=== PATIENT | female | born 1980 ===

== ENCOUNTER 2020-04-26 00:36 | Emergency (ER) | payer OTHER, SELFPAY ==
--- NOTE | 2020-04-26 01:12 | ED_ITS ---
HPI - Abdominal Pain General Chief Complaint: Abdominal Pain Stated Complaint: ABD PAIN Time Seen by Provider: 04/26/20 00:49 Source: patient Mode of arrival: ambulatory Limitations: no limitations History of Present Illness HPI narrative: Patient with history of kidney stone been having pain and right- side of her abdomen for last 1 month off and got worse tonight woke her up from sleep with increasing pain and nausea patient denies any urinary symptoms as such no hematuria patient feels similar pain in the past when she had kidney stone. No fever no diarrhea no abdominal distension bowel movements are normal Onset (ago): week(s) (4) Pain Consistency: intermittent Severity: moderate Related Data Allergies Allergy/AdvReac Type Severity Reaction Status Date / Time No Known Allergies Allergy Verified 04/26/20 01:21 Review of Systems Review of Systems REVIEW OF SYSTEMS: Pertinent positives and negatives are stated above in the history. GEN: no fevers, chills, fatigue HEENT: no nasal congestion, sore throat, ear pain NEURO: no headache, dizziness, focal weakness PULM: no cough, shortness of breath CV: no chest pain, palpitations, LE edema ABD: no vomiting, diarrhea : no dysuria, urgency, frequency SKIN: no rash ROS otherwise negative x 10 Physical Exam Vital Signs: Vital Signs: Last Vital Signs Temp 98.3 F 04/26/20 01:16 Pulse 88 04/26/20 01:16 Resp 16 04/26/20 01:16 BP 118/78 04/26/20 01:16 Pulse Ox 98 04/26/20 01:16 Body Mass Index 36.6 Appearance: Alert. Oriented X3. No acute distress. Eyes: Pupils equal, round and reactive to light. ENT: Pharynx normal. Neck: Normal inspection. Neck supple. CVS: Normal heart rate and rhythm. Pulses normal. Respiratory: No respiratory distress. Breath sounds normal. Abdomen: Soft and slight tender right mid quadrant right CVA tender, bowel sounds are present no rebound tenderness or guarding no mass palpable no hernia palpable Skin: Skin warm and dry. Normal skin color. Normal skin turgor. Extremities: No lower extremity edema. Good range of movement Neuro: Oriented X 3. No motor deficit. No sensory deficit. Course Course Course Narrative: Patient with right-sided pain with history of kidney stone came here for pain for a month got worse last night likely kidney stone will do CT scan of the abdomen to rule out any obstructive uropathy. Patient signed out to pending wortk up and disposition MDM - Abdominal Pain Lab Data Result diagrams: 04/26/20 01:58 04/26/20 01:58 Labs: Lab Results 04/26/20 04/26/20 Range/Units 01:58 01:58 WBC 9.2 (4.8-10.8) X10*3/uL RBC 4.25 (4.20-5.50) X10*6/uL Hgb 12.3 (12.0-16.0) g/dl Hct 37.4 (37-47) % MCV 88.0 (80-98) fL MCH 28.9 (27.0-33.0) pg MCHC 32.9 (31.0-35.0) g/dl RDW 13.2 (11.0-16.0) % Plt Count 314 (160-400) X10*3/uL MPV 10.7 (9.4-12.3) fL Immature Gran % (Auto) 0.1 (0.0-0.4) % Neut % (Auto) 48.0 (45-73) % Lymph % (Auto) 43.0 H (20-40) % Green % (Auto) 5.7 (2-11) % Eos % (Auto) 2.9 (0-4) % Baso % (Auto) 0.3 (0-2) % Lymph # (Auto) 4.0 (1.2-4.9) X10*3/uL Green # (Auto) 0.5 (0.1-1.2) X10*3/uL Eos # (Auto) 0.3 (0.0-0.4) X10*3/uL Baso # (Auto) 0.0 (0.0-0.2) X10*3/uL Abs Immat Gran (auto) 0.01 (0.00-0.03) X10*3/uL Absolute Neuts (auto) 4.4 (2.0-8.3) X10*3/uL Absolute Nucleated RBC 0.000 (0.0-0.012) X10*3/uL Nucleated RBC % (auto) 0.0 (0.0-0.2) /100WBC Urine Color YELLOW Urine Appearance CLOUDY Urine pH 6.5 (5.0-8.0) Ur Specific [place] 1.025 (1.005-1.025) Urine Protein NEG (NEG-TRACE) MG/DL Urine Glucose (UA) NEG (NEG) MG/DL Urine Ketones NEG (NEG) MG/DL Urine Blood 1+ H (NEG) Urine Nitrite POS H (NEG) Ur Leukocyte Esterase 3+ H (NEG) Urine Test NEGATIVE (NEGATIVE) [facility] Past Medical History Medical History Kidney calculus Surgical History Hx of eye surgery Hx of hernia repair Social History Social History Advance Directives: No
[2020-04-26 01:16] VITALS: BP 118/78; PULSE 88; RESP 16; TEMP 36.8; O2SAT 98; BMI 36.6
--- NOTE | 2020-04-26 01:22 | CT_ITS ---
EXAMINATION: CT ABDOMEN AND PELVIS WITHOUT CONTRAST CLINICAL INFORMATION: Right-sided pain. History of kidney stones. COMPARISON: 01/03/2019 TECHNIQUE: Multidetector volumetric imaging was performed from the superior aspect of the liver through the pubic symphysis. Sagittal and coronal reformatted images were obtained on the technologist's workstation. This CT examination was performed using dose optimization techniques as appropriate, variously including the following: *Automated exposure control *Adjustment of mA and/or kV according to patient size (this includes techniques or standardized protocols for targeted exams where dose is matched to indication/reason for exam; i.e. extremities or head) *Use of iterative reconstruction technique DLP: 732 mGy-cm FINDINGS: LUNG BASES: The visualized lung bases are unremarkable. LIVER, GALLBLADDER, AND BILIARY TREE: The liver is normal in size, and shape. Minimal diffuse hepatic steatosis. No focal hepatic lesion or biliary ductal dilatation is present. Gallbladder unremarkable. PANCREAS: Unremarkable. SPLEEN: Unremarkable. ADRENAL GLANDS: No significant change in size of the 3.4 cm left adrenal nodule measuring 11 Hounsfield units. Stable 1.3 cm lipid rich adenoma within the left adrenal and the new. Right adrenal gland is normal. KIDNEYS AND URETERS: There is a 1.8 x 1.2 cpm stone within the right renal pelvis, partially obstructing the right ureteropelvic junction associated with mild hydronephrosis. This stone measures approximately 1100 Hounsfield units and is located 11 cm from the posterior axillary line. There is also a 5 x 4 x 1 mm calculus within the dependent lower pole calyx on the right. There is a 4 mm calcification within the lower pole of the right kidney, and a few additional punctate calculi scattered throughout the left kidney. Ureters are normal in course and caliber. BLADDER: Unremarkable. GASTROINTESTINAL TRACT: Scattered left colonic diverticula. No evidence of diverticulitis. Stomach and small bowel unremarkable. Normal appendix. ABDOMINAL WALL: Prior mesh ventral herniorrhaphy. LYMPH NODES: Normal. VASCULAR: Unremarkable. PELVIC VISCERA: Uterus and ovaries unremarkable. Prior bilateral tubal ligation. OSSEOUS STRUCTURES: Significant loss of disc space height at L5-S1 with associated endplate osteophytes and facet arthropathy. CT/CT abdomen pelvis wo con IMPRESSION: * Interval increase in size of the dominant right renal calculus which has migrated into the right renal pelvis resulting in at least partial obstruction at the ureteropelvic junction associated with mild RIGHT hydronephrosis. * Additional bilateral nonobstructive intrarenal calculi as described. * Scattered left colonic diverticula without evidence of diverticulitis. * Stable indeterminate 3.4 cm nodule within the left adrenal gland measuring 11 Hounsfield units. Consider MRI or CT adrenal mass protocol in one year to document stability/definitively characterize. 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 Current guidelines from the [place] [employer] and the [place] [employer] recommend an initial biochemical evaluation of all adrenal incidentalomas to exclude pheochromocytoma, subclinical Erin/s syndrome and hyperaldosteronism.
[2020-04-26 02:03] LABS: Basophils Percent Auto 0.3 % (0-2); Eosinophils Absolute Auto 0.3 X10*3/uL (0.0-0.4); Eosinophils Percent Auto 2.9 % (0-4); Hematocrit 37.4 % (37-47); Hemoglobin 12.3 g/dl (12.0-16.0); Imm Gran Abs Auto 0.01 X10*3/uL (0.00-0.03); Imm Gran Pct Auto 0.1 % (0.0-0.4); MANUAL DIFF FLAG NO; Mean Corpuscular HGB Conc 32.9 g/dl (31.0-35.0); Mean Corpuscular Hemoglobin 28.9 pg (27.0-33.0); Mean Platelet Volume 10.7 fL (9.4-12.3); Monocytes Absolute Auto 0.5 X10*3/uL (0.1-1.2); Monocytes Percent Auto 5.7 % (2-11); Neutrophils Absolute Auto 4.4 X10*3/uL (2.0-8.3); Platelet Count 314 X10*3/uL (160-400); Red Blood Count 4.25 X10*6/uL (4.20-5.50); Red Cell Distribution Width 13.2 % (11.0-16.0); White Blood Count 9.2 X10*3/uL (4.8-10.8)
[2020-04-26 02:05] LABS: Glucose Urine UA NEG (NEG); Leukocyte Esterase Urine 3+ (NEG); Nitrite Urine POS (NEG); PH 6.5 (5.0-8.0); Specific Gravity - Urine 1.025 (1.005-1.025); Urine Blood 1+ (NEG); Urine Ketones NEG (NEG); Urine Protein NEG (NEG-TRACE)
[2020-04-26 02:07] LABS: Appearance Urine CLOUDY; Color Urine YELLOW; UPreg QC Valid YES; Urine Pregnancy NEGATIVE (NEGATIVE)
[2020-04-26] MEDS: 0.9 % Sodium Chloride 1,000 ML 999 ML IVCONT (02:07)
[2020-04-26] MEDS: Morphine Sulfate 4 MG/ML CARTRIDGE IVPUSH (02:07)
[2020-04-26] MEDS: ondansetron HCL 4 MG/2 ML VIAL IVPUSH (02:08)
[2020-04-26 02:12] LABS: Bacteria Urine 4+ /LPF; Mucus Urine 1+ /LPF; Squamous Epithelial Cell Urine 1+ /LPF; WBC Urine 30-49 /HPF (0-4)
[2020-04-26 02:31] LABS: Alanine Aminotransferase 9 U/L (0-31); Albumin Level 3.8 g/dL (3.5-5.0); Alkaline Phosphatase 71 U/L (39-117); Anion Gap 13 (12-20); Aspartate Amino Transferase 12 U/L (5-31); Bilirubin Total 0.3 mg/dL (0.0-1.0); Blood Urea Nitrogen 14 mg/dL (9-16); Calcium 8.7 mg/dL (8.4-10.2); Carbon Dioxide 24 mmol/L (22-29); Chloride 105 mmol/L (96-108); Creatinine Clr Calc Pharmacy 111.1; Estimated Glomerular Filt Rate > 60; Glucose Random 92 mg/dL (60-115); Lipase 39 U/L (8-78); Potassium 4.2 mmol/l (3.3-5.1); Sodium 138 mmol/L (135-145); Total Protein 6.5 g/dL (6.5-8.0)
--- NOTE | 2020-04-26 02:58 | PC.NURSE ---
confirmed with md Orozco that she does not want lactic or blood cultures.
[2020-04-26 03:05] VITALS: BP 100/63; PULSE 80; RESP 16; O2SAT 96
[2020-04-26] MEDS: cefTRIAXone sodium 1 GM in 0.9 % Sodium Chloride 50 ML IV (03:10)
[2020-04-26 04:00] VITALS: BP 108/64; PULSE 82; RESP 16; O2SAT 97
== END 2020-04-26 04:26 | disposition home or self-care (01) ==
PROVIDERS: Student in an Organized Health Care Education/Training Program; Emergency Provider Internal Medicine; PCP Internal Medicine
DX: N20.0 Calculus of kidney (principal); Z87.442 Personal history of urinary calculi
CPT/HCPCS: 36415; 74176; 80053; 81001; 81025; 83690; 85025; 87086; 87088; 87186; 96361; 96365; 96375; 99283; 99284; J0696; J2270; J2405

== ENCOUNTER → 2020-04-27 16:03 | Outpatient (BNVA) | payer OTHER, SELFPAY | PROVIDERS: Visit Provider Urology | DX: Z76.89 Persons encountering health services in other specified circumstances (principal) ==

== ENCOUNTER 2020-08-17 16:13 | Outpatient (REF) | payer OTHER, SELFPAY ==
--- NOTE | ~2020-08-17 | XR_ITS ---
EXAMINATION: XR HAND, LEFT CLINICAL INFORMATION: Pain. Assess for osteoarthritis. COMPARISON: None TECHNIQUE: Left hand is imaged in 3 views. FINDINGS: There is no fracture, dislocation, destructive process. There is normal bony mineralization. No periarticular osteopenia. Ulnar variance is within neutral. The carpus shows no joint narrowing or erosive change or chondrocalcinosis. The pronator quadratus fat pad appears normal. The MCP and interphalangeal joints show no narrowing or erosive change. XR/XR hand LT min 3V IMPRESSION: Normal left hand.
--- NOTE | ~2020-08-17 | XR_ITS ---
EXAMINATION: XR KNEE, LEFT CLINICAL INFORMATION: Pain, assess for osteoarthritis. COMPARISON: None TECHNIQUE: Four views of the left knee. FINDINGS: There is no fracture or dislocation or destructive process. There is borderline narrowing medial knee joint compartment but no associated subchondral sclerosis or erosive change or chondrocalcinosis. Suspect small suprapatellar effusion. Hoffa's fat pad appears normal. The bony mineralization is normal. Axial view patella shows no lateralization or tilting. XR/XR knee LT 4V IMPRESSION: Borderline medial knee joint compartment narrowing. Suspect small suprapatellar effusion.
[2020-08-17 17:09] LABS: Alanine Aminotransferase 17 U/L (0-31); Albumin Level 4.2 g/dL (3.5-5.0); Alkaline Phosphatase 79 U/L (39-117); Anion Gap 12 (12-20); Aspartate Amino Transferase 17 U/L (5-31); Bilirubin Total 0.8 mg/dL (0.0-1.0); Blood Urea Nitrogen 12 mg/dL (9-16); C Reactive Protein 0.84 mg/dL (< or = 0.50); Calcium 9.2 mg/dL (8.4-10.2); Carbon Dioxide 28 mmol/L (22-29); Chloride 106 mmol/L (96-108); Estimated Glomerular Filt Rate > 60; Glucose Random 91 mg/dL (60-115); Potassium 3.9 mmol/L (3.3-5.1); Rheumatoid Factor < 15.0 IU/mL (<15.0); Sodium 142 mmol/L (135-145); Total Protein 6.7 g/dL (6.5-8.0)
[2020-08-18 13:21] LABS: Anti Nuclear Antibody Screen NEGATIVE (NEGATIVE)
== END 2020-08-17 16:14 | disposition home or self-care (01) ==
LOC: HO.LAB 16:13
PROVIDERS: PCP Internal Medicine; Visit Provider Internal Medicine
DX: M79.642 Pain in left hand (principal); M25.562 Pain in left knee
CPT/HCPCS: 36415; 73130; 73564; 80053; 84550; 86038; 86039; 86140; 86431

== ENCOUNTER → 2020-08-27 10:02 | Outpatient (BNVA) | payer OTHER, SELFPAY | PROVIDERS: Visit Provider Physician Assistant | DX: M22.2X9 Patellofemoral disorders, unspecified knee (principal) | CPT/HCPCS: 99202 ==

== ENCOUNTER → 2020-08-31 11:19 | Outpatient (BNVA) | payer OTHER, SELFPAY | PROVIDERS: Visit Provider Physician Assistant | DX: M22.2X9 Patellofemoral disorders, unspecified knee (principal) | CPT/HCPCS: 20605; 20610; 99212; J1040 ==

== ENCOUNTER → 2020-09-08 10:18 | Outpatient (BNVA) | payer OTHER, SELFPAY | PROVIDERS: Visit Provider Orthopaedic Surgery | DX: M79.644 Pain in right finger(s) (principal); M22.2X9 Patellofemoral disorders, unspecified knee | CPT/HCPCS: 99202 ==

== ENCOUNTER 2020-10-12 08:00 | Outpatient (RCR) | payer OTHER, SELFPAY ==
--- NOTE | 2020-09-23 09:22 | MHC.PT.EP ---
[facility] [place] [facility] [place] [facility] [place] [facility] [address] Denisha Nunes [address] [phone] F: [phone] F: [phone] F: [phone] F: [phone] Physical Therapy Plan of Care Date of Evaluation: Date of Surgery: Diagnosis: PF of left knee Assessment: The patient arrived with medial and supra patellar knee pain. Her x-ray decreased joint space medial compartment and effusion in the supra patellar region. The patient had fairly normal ROM in her spine, ROM in her left knee, decreased strength in left knee. She has increased supination in standing with a high arch. She will benefit from assessment of gait, foot mechanics to help manage medial knee pain. Iontophoresis used today for local effusion in suprapatellar bursa. Quad strengthening will be important to improve joint stabilization. Frequency and Duration: The patient will be seen 2x/week x 4 weeks Short Term Goals: 1. Pt to be able to perform functional tasks with 50% less pain. Fpc Goals: weeks - the patient will have no limiting pain in her knees during gait with community ambulation to show improved activity tolerance. 4 weeks - pt will have more quad control with TKE demonstrated by no medial collapse during a curb height step. 4 weeks -patient to be able to return to all functional movements and ADL's without limiting knee pain to show return to PLOF. Treatment Plan: Modalities to reduce pain, spasms and effusion. Manual therapy to restore motion and function. Therapeutic exercise to improve strength and flexibility. Neuromuscular re-education for posture and balance. Therapeutic activities to return to functional activities of daily living. Electronically signed by: Rosario Montes PT DPT Please sign and return to therapist. Thank you for your referral.
== END 2020-10-26 08:00 | disposition home or self-care (01) ==
LOC: HO.PT 08:00
PROVIDERS: PCP Internal Medicine; Visit Provider Physician Assistant
DX: M22.2X9 Patellofemoral disorders, unspecified knee (principal)
CPT/HCPCS: 97033; 97110; 97112; 97140; 97162; 97530

== ENCOUNTER 2021-02-23 10:36 | Outpatient (REF) | payer OTHER, SELFPAY ==
[2021-02-23 13:33] LABS: MANUAL DIFF FLAG NO
[2021-02-23 13:41] LABS: Basophils Percent Auto 0.6 % (0-2); Eosinophils Absolute Auto 0.2 X10*3/uL (0.0-0.4); Eosinophils Percent Auto 3.5 % (0-4); Hematocrit 40.3 % (37-47); Hemoglobin 13.1 g/dl (12.0-16.0); Imm Gran Abs Auto 0.02 X10*3/uL (0.00-0.03); Imm Gran Pct Auto 0.3 % (0.0-0.4); Lymphocytes Absolute Auto 2.7 X10*3/uL (1.2-4.9); Lymphocytes Percent Auto 40.3 % (20-40); Mean Corpuscular HGB Conc 32.5 g/dl (31.0-35.0); Mean Corpuscular Hemoglobin 28.9 pg (27.0-33.0); Mean Corpuscular Volume 88.8 fL (80-98); Mean Platelet Volume 11.3 fL (9.4-12.3); Monocytes Absolute Auto 0.4 X10*3/uL (0.1-1.2); Monocytes Percent Auto 5.9 % (2-11); Neutrophils Absolute Auto 3.3 X10*3/uL (2.0-8.3); Neutrophils Percent Auto 49.4 % (45-73); Platelet Count 332 X10*3/uL (160-400); Red Blood Count 4.54 X10*6/uL (4.20-5.50); Red Cell Distribution Width 12.7 % (11.0-16.0); White Blood Count 6.6 X10*3/uL (4.8-10.8)
[2021-02-23 14:07] LABS: Appearance Urine CLEAR; Color Urine YELLOW; Glucose Urine UA NEG (NEG); Leukocyte Esterase Urine NEG (NEG); Nitrite Urine NEG (NEG); Specific Gravity - Urine 1.025 (1.005-1.025); Urine Blood NEG (NEG); Urine Ketones NEG (NEG); Urine Protein NEG (NEG-TRACE)
[2021-02-23 14:22] LABS: Alanine Aminotransferase 13 U/L (0-31); Albumin Level 4.1 g/dL (3.5-5.0); Alkaline Phosphatase 76 U/L (39-117); Anion Gap 13 (12-20); Aspartate Amino Transferase 13 U/L (5-31); Bilirubin Total 0.4 mg/dL (0.0-1.0); Blood Urea Nitrogen 13 mg/dL (9-16); Calcium 9.6 mg/dL (8.4-10.2); Carbon Dioxide 26 mmol/L (22-29); Chloride 104 mmol/L (96-108); Estimated Glomerular Filt Rate > 60; Glucose Fasting 95 mg/dL (60-99); Potassium 4.4 mmol/L (3.3-5.1); Sodium 139 mmol/L (135-145); Total Protein 6.7 g/dL (6.5-8.0)
[2021-02-26 13:46] LABS: TS Negative Control Passed; TS Panel A 0; TS Panel B 0; TS Positive Control Passed; TSpotTB Negative (SeeBelow)
== END 2021-02-23 10:37 | disposition home or self-care (01) ==
LOC: HO.10HDL 10:36
PROVIDERS: Visit Provider Internal Medicine
DX: Z02.1 Encounter for pre-employment examination (principal); Z11.1 Encounter for screening for respiratory tuberculosis; R10.9 Unspecified abdominal pain; N20.0 Calculus of kidney
CPT/HCPCS: 36415; 80053; 81003; 85025; 86481; 87086

== ENCOUNTER 2021-03-01 13:06 | Outpatient (REF) | payer OTHER, SELFPAY ==
[2021-03-02 13:55] LABS: CT PCR NOT DETECTED (Not Detect.); NG PCR NOT DETECTED (Not Detect.)
[2021-03-03 09:04] LABS: BV Int Neg Control Negative (Negative); BV Int Pos Control Positive (Positive)
[2021-03-05 19:02] LABS: HPV mRNA E6/E7 rflx Not Detected (Not Detected)
== END 2021-03-01 13:07 | disposition home or self-care (01) ==
LOC: HO.LAB 13:06
PROVIDERS: Visit Provider Advanced Practice Midwife
DX: Z01.419 Encounter for gynecological examination (general) (routine) without abnormal findings (principal); Z11.3 Encounter for screening for infections with a predominantly sexual mode of transmission; Z11.51 Encounter for screening for human papillomavirus (HPV); Z20.2 Contact with and (suspected) exposure to infections with a predominantly sexual mode of transmission
CPT/HCPCS: 87480; 87491; 87510; 87591; 87624; 87660; 88142

== ENCOUNTER 2021-03-15 13:52 | Outpatient (REF) | payer OTHER, SELFPAY ==
--- NOTE | ~2021-03-15 | US_ITS ---
EXAMINATION: US RETROPERITONEAL LIMITED (RENAL ONLY) CLINICAL INFORMATION: Calculus of kidney. COMPARISON: CT abdomen and pelvis 04/26/2020. Renal ultrasound 06/21/2019. TECHNIQUE: Real-time imaging of the kidneys. FINDINGS: RIGHT KIDNEY: 10.5 x 6.0 x 5.9 cm (SAG x AP x TRV). The kidney is normal in size, contour, and echogenicity. Renal cortical thickness is normal. No focal parenchymal lesion. There is moderate hydronephrosis noted. Multiple calculi are seen in the collecting system. There is a midpole 0.9 cm calculus. There is also a 0.5 cm midpole calculus. Of note, the ureteral jets are seen in the bladder. LEFT KIDNEY: 10.5 x 5.3 x 5.7 cm (SAG x AP x TRV). The kidney is normal in size, contour, and echogenicity. Renal cortical thickness is normal. No calculi or focal parenchymal lesions. No hydronephrosis. US/US renal BI IMPRESSION: Moderate right hydronephrosis. Nonobstructing right-sided renal calculi are seen at the midpole. Of note, the ureteral jets are visualized in the bladder.
== END 2021-03-15 13:53 | disposition home or self-care (01) ==
LOC: HO.US 13:52
PROVIDERS: PCP Internal Medicine; Visit Provider Urology
DX: N20.0 Calculus of kidney (principal)
CPT/HCPCS: 76775

== ENCOUNTER → 2021-03-21 13:58 | Outpatient (BNVA) | payer OTHER, SELFPAY | DX: N20.0 Calculus of kidney (principal) | CPT/HCPCS: 99212 ==

== ENCOUNTER 2021-03-30 08:11 | Day surgery (SDC) | payer OTHER, SELFPAY ==
--- NOTE | 2021-03-29 12:23 | HO.ANESPROP2 ---
Documented by User: Christine Mccord NP 03/29/21 12:24 HPI - Anesthesia Eval Consult details Narrative: 40yo F for Lithotripsy ESW No prev ESWL on record PMFSH Active Problems Active Problems: All Active Problems (Updated 03/16/21 @ 16:17 by Jen Jacome CNM) Cervical cancer screening (Acute) Well woman exam with routine gynecological exam (Acute) Kidney calculus (Acute) Pain of right thumb (Acute) Patella-femoral syndrome (Acute) Past Medical History Medical History Kidney calculus Surgical History Surgical History History of tubal ligation Hx of eye surgery Hx of hernia repair Social History Social History Alcohol intake: former Patient Tobacco Use Status: Never used Tobacco Use of substances other than those prescribed or required for medical reasons: No Have you been hit, kicked, punched, or otherwise hurt by someone within the past year? If so, by whom?: No Are you DNR?: No Advance Directives: No Advance Directives Information Provided: Yes Recently lost weight without trying: No Nutrition Risks: No Nutritional Risk Patient : No Current occupational status: employed Current occupation: Charge Nurse Meds Allergies Allergy/AdvReac Type Severity Reaction Status Date / Time No Known Allergies Allergy Verified 03/21/21 14:15 Home Medications Medication Instructions Recorded Confirmed Last Taken Type glucosamine-chondroitin 250 mg-200 2 tab PO TID 08/27/20 03/01/21 Unknown History mg tablet (Osteo Bi-Flex) sulfamethoxazole 800 1 tab PO Q12H 03/01/21 03/01/21 Unknown History mg-trimethoprim 160 mg tablet (Bactrim DS) ibuprofen 800 mg tablet 800 mg PO TID PRN 03/21/21 Unknown History Exam Exam Date and Time: March 29, 2021 1223 Pertinent Lab Results Pertinent Lab Results: Laboratory Tests 02/23/21 02/23/21 10:40 10:40 WBC 6.6 Hgb 13.1 Hct 40.3 Plt Count 332 Sodium 139 Potassium 4.4 Chloride 104 Carbon Dioxide 26 BUN 13 Creatinine 0.70 Assessment and Plan Assessment Anesthesia Assessment: Chart Reviewed Documented by User: Gaye Nicole MD 03/30/21 10:13 [facility] Past Medical History Medical History Kidney calculus Family History Family history of problems with anesthesia: No Surgical History Surgical History History of tubal ligation Hx of eye surgery Hx of hernia repair History of Problems with Anesthesia: No Social History Social History Alcohol intake: former Patient Tobacco Use Status: Never used Tobacco Use of substances other than those prescribed or required for medical reasons: No Have you been hit, kicked, punched, or otherwise hurt by someone within the past year? If so, by whom?: No Are you DNR?: No Advance Directives: No Advance Directives Information Provided: Yes Recently lost weight without trying: No Nutrition Risks: No Nutritional Risk Patient : No Current occupational status: employed Current occupation: Charge Nurse Meds Allergies Allergy/AdvReac Type Severity Reaction Status Date / Time No Known Allergies Allergy Verified 03/21/21 14:15 Home Medications Medication Instructions Recorded Confirmed Last Taken Type glucosamine-chondroitin 250 mg-200 2 tab PO TID 08/27/20 03/01/21 Unknown History mg tablet (Osteo Bi-Flex) sulfamethoxazole 800 1 tab PO Q12H 03/01/21 03/01/21 Unknown History mg-trimethoprim 160 mg tablet (Bactrim DS) ibuprofen 800 mg tablet 800 mg PO TID PRN 03/21/21 Unknown History Exam Airway Mallampati Class: II TM Dist: >3cm Neck ROM: Full Heart: rrr Lungs: cta Assessment and Plan Assessment Anesthesia Assessment: Anesthesia Plan Discussed and Chart Reviewed Final Anesthetic Review Family History of Problems with Anesthesia: No History of Problems with Anesthesia: No NPO: Yes ASA Class: II Final Preanesthetic Review: No Changes in Pt Med Stat, Meds/Allgs Chart Reviewed and Consent Obtained/Reviewed Patient Risk: Intermediate Procedure Risk: Intermediate Anesthetic Plan Anesthetic Plan: MAC: Disposition: Standard PACU
--- NOTE | ~2021-03-30 | XR_ITS ---
EXAMINATION: XR ABDOMEN KUB CLINICAL INDICATION: Nephrolithiasis. COMPARISON: Renal ultrasound of 03/15/21. Prior CT scan of 04/26/20. TECHNIQUE: AP view of the abdomen. FINDINGS: The calculus seen previously in the right renal pelvis is again demonstrated measuring 2.0 x 1.2 cm. A small linear calcification overlying the lower pole the left kidney could represent calculus measuring 0.4 x 0.1 cm. Calcified phleboliths are noted in the pelvis. Mesh fasteners from previous abdominal wall hernia repair are noted. The bowel gas pattern is unremarkable. XR/XR KUB IMPRESSION: Persistent calculus at the right renal pelvis. Questionable small calculus lower pole left kidney.
[2021-03-30 08:46] VITALS: BP 107/68; PULSE 87; RESP 18; TEMP 36.2; O2SAT 97; BMI 38.6
[2021-03-30] MEDS: levoFLOXacin 500 MG TABLET PO (09:00)
[2021-03-30] MEDS: Lactated Ringers 1,000 ML 100 ML IVCONT (09:00)
[2021-03-30] MEDS: Acetaminophen 325 MG TABLET 650 MG PO (09:01)
--- NOTE | 2021-03-30 10:16 | MHC.SHP ---
Pre-Procedural Eval Section A Date of Service: 03/30/21 Section B Chief Complaint: calculus of kidney Details of Present Illness: right midpole 9mm and 5mm stones Relevant Social History: None Present Medications: see Short Stay Collaborative assessment Medical History: No relevant PMH History of Previous Operations: No relevant previous surgery Allergies: Allergies Allergy/AdvReac Type Severity Reaction Status Date / Time No Known Allergies Allergy Verified 03/21/21 14:15 Review of Systems Sugical H&P ROS: Negative: Constitution, Cardiovascular, Respiratory, Neurological, Psychiatric, Hem-Onc, Allergic/Immunologic, Gastrointestinal, Genitourinary, Musculoskeletal, Integumentary, Endocrine and Eyes/Ears/Nose/Throat Exam Surgical H&P Exam: Normal: HEENT, Normal: Heart, Normal: Lungs, Normal: Extremities, Normal: Abdomen, Normal: Skin and Normal: Neurological Plan Diagnosis/Plan: Unchanged (right mid pole ESWL) I have reviewed the history and physical and performed a pertinent physical examination on my patient. No changes have occurred unless specified.
--- NOTE | 2021-03-30 11:06 | W.PM.OPN ---
Operative Note Operative Note Date of Service: 03/30/21 Narrative: PreOperative Diagnosis: Right Renal stones Post Operative Diagnosis: Right Renal stones Procedure: Right ESWL Surgeon: Dr Hal Cordova Anesthesia: mac/sedation Indications for procedure: The patient understands ESWL may be a staged procedure and subsequent intervention may be required based on imaging after ESWL. They also understand there is a risk of bleeding to the kidney, infection, damage to adjacent organs, and stone migration following the procedure. - 9mm mm right renal stone Procedure: After informed consent was verified the patient was brought to the operating room and placed in a supine position. Anesthesia was performed per protocol. Safety pause time-out was performed. Imaging was displayed in the room and laterality confirmed. ESWL was performed. The 1st 500 shocks were performed at 60 hertz. These were performed with increasing power. Once maximum power was reached the rate was increased to 180 hertz. A total of 2500 shocks were given. Targetted imaging with ultrasound/fluoroscopy showed stone smudging suggestive of disintegration. The patient tolerated the procedure well and was transferred to the recovery area upon completion. Post procedure imaging will be organized. There was no evidence for flank discoloration.
[2021-03-30 11:26] VITALS: BP 102/59; PULSE 83; RESP 12; TEMP 36.1; O2SAT 98
[2021-03-30 11:41] VITALS: BP 117/77; PULSE 66; RESP 17; TEMP 36.1; O2SAT 96
== END 2021-03-30 12:13 | disposition home or self-care (01) ==
PROVIDERS: PCP Internal Medicine; Visit Provider Urology
PROC: (CPT 50590; principal; 2021-03-30 10:00)
DX: N20.0 Calculus of kidney (principal); Z87.442 Personal history of urinary calculi; Z98.51 Tubal ligation status
CPT/HCPCS: 50590; 74018; J1100; J2250; J2405; J3010

== ENCOUNTER 2021-04-26 11:28 | Outpatient (REF) | payer OTHER, SELFPAY ==
--- NOTE | ~2021-04-26 | US_ITS ---
EXAMINATION: US RETROPERITONEAL LIMITED (RENAL ONLY) CLINICAL INFORMATION: Calculus of kidney. COMPARISON: KUB dated 03/30/2021. Bilateral renal ultrasound dated 03/15/2021. CT abdomen and pelvis without contrast dated 04/26/2020. Renals only ultrasound dated 06/21/2019. TECHNIQUE: Real-time imaging of the kidneys. FINDINGS: RIGHT KIDNEY: 12.4 x 5.0 x 7.1 cm (SAG x AP x TRV). The kidney is normal in size, contour, and echogenicity. Renal cortical thickness is normal. No focal parenchymal lesions. There is an echogenic cluster of stones in the right proximal ureter measuring 2.6 x 1.0 x 1.1 cm with mild hydronephrosis. In addition, there are several echogenic stones in lower pole measuring 0.9 x 0.4 x 0.6 cm and 0.5 x 0.4 x 0.8 cm and 1.2 x 0.7 x 0.6 cm. LEFT KIDNEY: 11.9 x 5.6 x 6.0 cm (SAG x AP x TRV). The kidney is normal in size, contour, and echogenicity. Renal cortical thickness is normal. No focal parenchymal lesions or hydronephrosis. There is an echogenic stone in the lower pole measuring 0.4 x 0.3 x 0.4 cm. US/US renal BI IMPRESSION: Cluster of obstructive echogenic stones in the left proximal ureter with mild hydronephrosis. Small echogenic stone lower pole measuring 0.4 cm.
== END 2021-04-26 11:29 | disposition home or self-care (01) ==
LOC: HO.HMGCX 11:28
PROVIDERS: Visit Provider Urology
DX: N20.0 Calculus of kidney (principal)
CPT/HCPCS: 76775

== ENCOUNTER → 2021-04-27 10:53 | Outpatient (BNVA) | payer OTHER, SELFPAY | PROVIDERS: PCP Internal Medicine ==

== ENCOUNTER 2021-05-04 15:01 | Outpatient (REF) | payer OTHER, SELFPAY ==
[2021-05-10 15:21] LABS: Stone Source STONE
== END 2021-05-04 15:02 | disposition home or self-care (01) ==
LOC: HO.LNP 15:01
PROVIDERS: PCP Internal Medicine; Visit Provider Urology
DX: N20.0 Calculus of kidney (principal)
CPT/HCPCS: 82365; 88300; 99212

== ENCOUNTER 2021-06-06 10:08 | Day surgery (SDC) | payer OTHER, SELFPAY ==
[2021-05-31 10:04] VITALS: BMI 38.6
--- NOTE | 2021-06-03 13:21 | HO.ANESPROP2 ---
Documented by User: Christine Mccord NP 06/03/21 13:23 HPI - Anesthesia Eval Consult details Narrative: 41yo F for Right Cystoscopy, Ureteroroscopy, Retro, Laser possible stent s/p ESWL 03/2021 with MAC PMFSH Active Problems Active Problems: All Active Problems (Updated 05/31/21 @ 10:04 by Marielos Harper, MIKE) Patella-femoral syndrome (Acute) Pain of right thumb (Acute) Well woman exam with routine gynecological exam (Acute) Cervical cancer screening (Acute) Kidney calculus (Acute) Past Medical History Medical History (Updated 05/31/21 @ 10:04 by Marielos Harper RN) COVID-19 vaccine series completed Kidney calculus Family History Family history of problems with anesthesia: No Surgical History Surgical History (Updated 05/31/21 @ 09:55 by Marielos Harper RN) History of tubal ligation Hx of eye surgery Hx of hernia repair Hx of lithotripsy History of Problems with Anesthesia: No Social History Social History Alcohol intake: former Patient Tobacco Use Status: Never used Tobacco Use of substances other than those prescribed or required for medical reasons: No Have you been hit, kicked, punched, or otherwise hurt by someone within the past year? If so, by whom?: No Advance Directives: No Advance Directives Information Provided: Yes (brochure mailed) Advance Directives on File: No Recently lost weight without trying: No Eating poorly because of decreased appetite: No Nutrition Risks: No Nutritional Risk Current occupational status: employed Current occupation: Charge Nurse Meds Allergies Allergy/AdvReac Type Severity Reaction Status Date / Time No Known Allergies Allergy Verified 05/04/21 15:04 Home Medications Medication Instructions Recorded Confirmed Last Taken Type glucosamine-chondroitin 250 mg-200 2 tab PO TID 08/27/20 05/31/21 Unknown History mg tablet (Osteo Bi-Flex) ibuprofen 800 mg tablet 800 mg PO TID PRN 03/21/21 05/31/21 Unknown History Exam Exam Date and Time: June 03, 2021 1321 Height,Weight and Vital Signs: Height 5 ft 3 in Weight 98.883 kg Pertinent Lab Results Pertinent Lab Results: Laboratory Tests 02/23/21 02/23/21 10:40 10:40 WBC 6.6 Hgb 13.1 Hct 40.3 Plt Count 332 Sodium 139 Potassium 4.4 Chloride 104 Carbon Dioxide 26 BUN 13 Creatinine 0.70 Assessment and Plan Assessment Anesthesia Assessment: Chart Reviewed Final Anesthetic Review Family History of Problems with Anesthesia: No History of Problems with Anesthesia: No Documented by User: Gaye Nicole MD 06/06/21 10:50 PMFSH Past Medical History Medical History (Updated 05/31/21 @ 10:04 by Marielos Harper RN) COVID-19 vaccine series completed Kidney calculus Surgical History Surgical History (Updated 05/31/21 @ 09:55 by Marielos Harper RN) History of tubal ligation Hx of eye surgery Hx of hernia repair Hx of lithotripsy Social History Social History Alcohol intake: former Patient Tobacco Use Status: Never used Tobacco Use of substances other than those prescribed or required for medical reasons: No Have you been hit, kicked, punched, or otherwise hurt by someone within the past year? If so, by whom?: No Advance Directives: No Advance Directives Information Provided: Yes (brochure mailed) Advance Directives on File: No Recently lost weight without trying: No Eating poorly because of decreased appetite: No Nutrition Risks: No Nutritional Risk Current occupational status: employed Current occupation: Charge Nurse Meds Allergies Allergy/AdvReac Type Severity Reaction Status Date / Time No Known Allergies Allergy Verified 05/04/21 15:04 Home Medications Medication Instructions Recorded Confirmed Last Taken Type glucosamine-chondroitin 250 mg-200 2 tab PO TID 08/27/20 05/31/21 Unknown History mg tablet (Osteo Bi-Flex) ibuprofen 800 mg tablet 800 mg PO TID PRN 03/21/21 05/31/21 Unknown History Exam Airway Mallampati Class: II TM Dist: >3cm Neck ROM: Full Heart: rrr Lungs: cta Assessment and Plan Assessment Anesthesia Assessment: Anesthesia Plan Discussed and Chart Reviewed Final Anesthetic Review NPO: Yes ASA Class: II Final Preanesthetic Review: No Changes in Pt Med Stat, Meds/Allgs Chart Reviewed and Consent Obtained/Reviewed Patient Risk: Intermediate Procedure Risk: Intermediate Anesthetic Plan Anesthetic Plan: GA Disposition: Standard PACU
[2021-06-06] VITALS (15 sets, daily range): BP systolic 106–128; BP diastolic 66–81; PULSE 63–91; RESP 16–18; TEMP 36.3–36.8; O2SAT 95–99
--- NOTE | ~2021-06-06 | FL_ITS ---
EXAMINATION: XR FLUOROSCOPY WITH IMAGES CLINICAL INFORMATION: Echogenic stone lower pole left kidney. COMPARISON: Ultrasound kidneys 04/26/2021. TECHNIQUE: Fluoroscopy performed by Dr. Hal Cordova Fluoroscopy time: 85.9 seconds DAP: 37.12 mGycm2 Images: 3 FINDINGS: There are 3 digital images obtained in the OR. On the first image there is a right ureteral guidewire with proximal catheter or stent. The last image reveals a double ureteral stent with its proximal end in the right kidney pelvis and the distal end in the bladder. There is evidence of previous upper abdomen hernia repair changes. FL/FL guidance in OR IMPRESSION: Fluoroscopy was provided to Dr. Art Hong for right retrograde and laser intervention.
--- NOTE | 2021-06-06 11:47 | MHC.SHP ---
Pre-Procedural Eval Section A Date of Service: 06/06/21 The patient is an INPATIENT: No Changes since office visit: No Cold of Flu in the past 2 weeks, No New Medical Problems, No Changes in Medication and No Patient answered all questions The History & Physical has been completed within 30 days and I have reviewed it.: No Section B Chief Complaint: kidney stone Details of Present Illness: Right proximal ureteric stones Relevant Family History (Specify if Yes): No Relevant Social History: None Present Medications: None Medical History: No relevant PMH History of Previous Operations: Relevant previous surgery/procedure and date(s) Allergies: Allergies Allergy/AdvReac Type Severity Reaction Status Date / Time No Known Allergies Allergy Verified 05/04/21 15:04 Review of Systems Sugical H&P ROS: Negative: Constitution, Cardiovascular, Respiratory, Neurological, Psychiatric, Hem-Onc, Allergic/Immunologic, Gastrointestinal, Genitourinary, Musculoskeletal, Integumentary, Endocrine and Eyes/Ears/Nose/Throat Exam Surgical H&P Exam: Normal: HEENT, Normal: Heart, Normal: Lungs, Normal: Extremities, Normal: Abdomen, Normal: Skin and Normal: Neurological Plan Diagnosis/Plan: Unchanged (right felxible ureteroscopy with laser lithotripsy) I have reviewed the history and physical and performed a pertinent physical examination on my patient. No changes have occurred unless specified.
[2021-06-06] MEDS: levoFLOXacin 500 MG TABLET PO (12:05)
[2021-06-06] MEDS: Lactated Ringers 1,000 ML 50 ML IVCONT (12:06)
--- NOTE | 2021-06-06 13:19 | W.PM.OPN ---
Operative Note Operative Note Date of Service: 06/06/21 Narrative: PreOperative Diagnosis: Right proximal ureteric stones Post Operative Diagnosis: Right proximal ureteric and right renal stones Procedure: - cystoscopy, right retrograde - right dilatation of ureteric orifice under fluoroscopy - right ureteroscopy, laser lithotripsy, stone basketing - right stent placement Surgeon: Dr Hal Cordova Anesthesia: General Indications for procedure: 41-year-old female. Underwent ESWL for right stent renal stone. Has had fragmentation that got stuck in right proximal ureter and debris within right lower pole kidney. These have been our past. Recommend intervention with ureteroscopy. Procedure: After informed consent was verified patient was brought to the operating placed in supine position. Anesthesia was administered per protocol. Patient was placed in modified dorsal lithotomy position and prepped and draped in a sterile fashion. Safety pause time-out and side of surgery confirmed. Antibiotics confirmed. 22 Ghanaian cystoscope was inserted per urethra. Bladder was normal in its entirety. Both ureteric orifices were in normal position. The right ureteric orifice was cannulated and a retrograde examination was performed. Filling defects seen in the proximal right ureter. A Sensor guidewire was placed up to the level of the renal pelvis under fluoroscopy, did have some difficulty passing collection of stones in the right proximal ureter. The rigid cystoscope was removed and the inner cannula of ureteric access sheath was used under fluoroscopy to dilate the ureteric orifice. The ureteric access sheath was placed and the inner cannula with access wire removed. The digital flexible ureteral scope was placed. Stone debris was encountered in the proximal ureter. Using a 272 micron laser fiber the stones were broken into small pieces. Some of the mid back up into the kidney. We went up the kidney and was further stone debris in both the lower and mid pole the kidney. These were broken up using the laser. We switched to using a 0 tip basket in order remove fragments. We switched back with and forth between 0 to basket the laser fiber breaking up the stones into the fragments that were small enough to pass. The the kidney was washed out using the open-ended catheter. Further exploration was performed and further fragments were removed. A 6 Ghanaian by 24 cm double-J stent was placed into the renal pelvis and bladder under a combination of fluoroscopy and direct visualization. The bladder was emptied. The patient tolerated the procedure well and was extubated in the operating room, and transferred in stable condition to the recovery area. Pathology: Stones Drains: 6 Ghanaian by 24 cm double-J stent
[2021-06-06] MEDS: fentaNYL citrate/PF 100 MCG/2 ML VIAL 50 MCG IVPUSH (13:36)
[2021-06-06] MEDS: Phenazopyridine HCL 100 MG TABLET PO (13:37)
[2021-06-06] MEDS: Acetaminophen 325 MG TABLET 650 MG PO (13:37)
[2021-06-06] MEDS: oxyCODONE HCl Immed Release 5 MG TABLET PO (13:38)
[2021-06-09 04:27] LABS: Stone Source KIDNEY STONE
== END 2021-06-06 16:36 | disposition home or self-care (01) ==
PROVIDERS: PCP Internal Medicine; Visit Provider Urology
PROC: (CPT 52356; principal; 2021-06-06 11:40)
DX: N20.0 Calculus of kidney (principal); N20.1 Calculus of ureter; Z87.442 Personal history of urinary calculi; Z79.4 Long term (current) use of insulin
CPT/HCPCS: 52356; 52352; 82365; 88300; C1758; C1769; C2617; J1100; J1885; J2250; J2405; J2550; J3010; Q9967

== ENCOUNTER 2021-06-15 08:49 | Emergency (ER) | payer OTHER, SELFPAY ==
--- NOTE | ~2021-06-15 | CT_ITS ---
EXAMINATION: CT ABDOMEN AND PELVIS WITH CONTRAST CLINICAL INFORMATION: Suprapubic pain and tenderness. COMPARISON: None. TECHNIQUE: Multidetector volumetric images were obtained from the superior aspect of the liver through the pubic symphysis following administration 85 mL of Omnipaque 350 intravenous contrast. Sagittal and coronal reformatted images were obtained on the technologist's workstation. Oral contrast: No This CT examination was performed using dose optimization techniques as appropriate, variously including the following: *Automated exposure control *Adjustment of mA and/or kV according to patient size (this includes techniques or standardized protocols for targeted exams where dose is matched to indication/reason for exam; i.e. extremities or head) *Use of iterative reconstruction technique DLP: 731 mGy-cm FINDINGS: LUNG BASES: The visualized lung bases are unremarkable. LIVER, GALLBLADDER, AND BILIARY TREE: The liver is low in attenuation suggestive of fatty infiltration. No focal hepatic lesion or biliary ductal dilatation is present. The gallbladder is unremarkable with no evidence of radiopaque gallstones, gallbladder wall thickening, or obvious pericholecystic inflammatory changes. PANCREAS: Unremarkable. SPLEEN: Unremarkable. ADRENAL GLANDS: There are 2 low-attenuation left adrenal lesions that are stable. These have low Hounsfield units suggestive of benign adenomas. These measure 1 cm and 2.5 x 3 cm. The right adrenal gland is normal. KIDNEYS AND URETERS: There is a right internal ureteral stent. The proximal end of the stent is in the right renal collecting system. The distal end of the stent is just into the bladder. There is mild right hydronephrosis and ureteral dilatation. There is a small 1 to 2 mm stone in the right distal ureter adjacent to the stent for example coronal image 63 series 5. There are small bilateral renal stones. Largest stone measures 2 to 3 mm. No left hydronephrosis. BLADDER: The distal end of right internal ureteral stent just enters the bladder. The bladder is otherwise unremarkable. GASTROINTESTINAL TRACT: There is diverticulosis of the colon. Small and large bowel is otherwise unremarkable. The appendix is unremarkable. The stomach is unremarkable. ABDOMINAL WALL: Postoperative ventral hernia repair with mesh. LYMPH NODES: Normal. VASCULAR: Unremarkable. PELVIC VISCERA: Unremarkable. OSSEOUS STRUCTURES: Degenerative disc disease at L5-S1. CT/CT abdomen pelvis w con IMPRESSION: Right internal ureteral stent. Mild right hydronephrosis and ureteral dilatation down to the bladder. Small bilateral renal stones. Small right distal ureteral stone. Stable low-attenuation left adrenal lesions. Fleischner guidelines were followed.
[2021-06-15 08:51] VITALS: BP 134/71; PULSE 95; RESP 18; TEMP 36.9; O2SAT 99; BMI 38.0
[2021-06-15 09:16] LABS: Appearance Urine HAZY; Color Urine YELLOW; Glucose Urine UA NEG (NEG); Leukocyte Esterase Urine 1+ (NEG); Nitrite Urine NEG (NEG); Specific Gravity - Urine >= 1.030 (1.005-1.025); UACC Culture Trigger YES; Urine Blood 3+ (NEG); Urine Ketones NEG (NEG); Urine Protein 2+ MG/DL (NEG-TRACE)
[2021-06-15 09:18] LABS: UPreg QC Valid YES; Urine Pregnancy NEGATIVE (NEGATIVE)
--- NOTE | 2021-06-15 09:22 | ED_ITS ---
HPI - General Adult General Chief complaint: General Medical Stated complaint: Post op complications Time Seen by Provider: 06/15/21 09:22 Source: patient Mode of arrival: ambulatory Limitations: no limitations History of Present Illness HPI narrative: 41-year-old female who presents emergency department for evaluation of severe painful urination, suprapubic pain and right lower quadrant pain. The patient had a laser lithotripsy with J-tube stent placement on 06/06/2021. In reviewing the note, the patient had a large stone burden. The patient states that since the procedure she has had pain but over the past several days the pain is gotten severe. She states she feels as if someone is jamming a screwdriver into her bladder. She states that this pain is intermittent but frequent and is 7/10 at its worst. She has had dysuria and urinary frequency. She states the pain is radiating into her right lower quadrant area but not into her back. She has had nausea with no vomiting. She denied fever or chills. She has had some loose stools. The patient has been taking naproxen every 12 hours and tramadol with no relief for pain. She is also taking trimethoprim and tamsulosin. Related Data Home Medications Medication Instructions Recorded Confirmed glucosamine-chondroitin 250 mg-200 2 tab PO TID 08/27/20 05/31/21 mg tablet (Osteo Bi-Flex) ibuprofen 800 mg tablet 800 mg PO TID PRN 03/21/21 05/31/21 Previous Rx's Medication Instructions Recorded naproxen 500 mg tablet 500 mg PO BID PRN 7 Days #14 tab 03/30/21 tamsulosin 0.4 mg capsule 0.4 mg PO BEDTIME 14 Days #14 cap 03/30/21 tramadol 50 mg tablet 50 mg PO Q6H PRN #14 tab 03/30/21 naproxen 500 mg tablet 500 mg PO BID PRN 7 Days #14 tab 06/06/21 phenazopyridine 100 mg tablet 100 mg PO TID PRN 4 Days #12 tab 06/06/21 (Pyridium) tamsulosin 0.4 mg capsule 0.4 mg PO BEDTIME 14 Days #14 cap 06/06/21 tramadol 50 mg tablet 50 mg PO Q6H PRN #14 tab 06/06/21 trimethoprim 100 mg tablet 100 mg PO Q12H 10 Days #20 tab 06/06/21 ciprofloxacin HCl 500 mg tablet 500 mg PO Q12H 5 Days #10 tab 06/15/21 (Cipro) morphine 15 mg immediate release 15 mg PO Q4-6H PRN #14 tab 06/15/21 tablet Allergies Allergy/AdvReac Type Severity Reaction Status Date / Time No Known Allergies Allergy Verified 05/04/21 15:04 Review of Systems Verdana 4l Review of Systems: Yes all other systems are reviewed and Verdana 4d are negative [facility] Past Medical History Medical History COVID-19 vaccine series completed Kidney calculus Surgical History History of tubal ligation Hx of eye surgery Hx of hernia repair Hx of lithotripsy Social History Social History Alcohol intake: former Patient Tobacco Use Status: Never used Tobacco Advance Directives: No Advance Directives Information Provided: No Current occupational status: employed Current occupation: Charge Nurse Physical Exam Verdana 4l Vital Signs: Verdana 4d Verdana 4d Vital Signs: Verdana 4d Verdana 4Bd Last Vital Signs Verdana 4d Pre Sales Technical Engineer New 4d Pre Sales Technical Engineer New 4d Temp 98.4 F 06/15/21 08:51 Pre Sales Technical Engineer New 4d Pulse 74 06/15/21 12:54 Pre Sales Technical Engineer New 4d Resp 14 06/15/21 12:54 BP 120/71 06/15/21 12:54 Pulse Ox 97 06/15/21 12:54 BMI result Body Mass Index 38.0 Const: Other: Very pleasant cooperative female patient, BMI of 38, does not appear to be in significant distress, answers all questions appropriately HENMT: Head: Yes normal to inspection, Yes normocephalic and Yes atraumatic Ears: external ears normal General nose exam: Normal external nose present Face and sinus: Yes normal facial exam Mouth: Normal oral and palatal mucosa present Throat: Yes posterior oropharynx normal Eyes: General: appearance normal, both eyes and all related structures Pupils: E qual, round and reactive pupils present Neck: Neck: Yes normal visual inspection, Yes no lymphadenopathy, Yes trachea midline and Yes supple Chest: Chest palpation & inspection: normal inspection of the chest and normal palpation of entire chest wall Resp: Effort & Inspection: normal respiratory effort and able to speak in complete sentences Auscultation: clear to auscultation bilaterally Cardio: Rate: regular rate Rhythm: regular rhythm Heart sounds: S1 normal heart sound present, S2 normal heart sound present and no murmurs GI: Inspection: Yes normal to inspection Palpation (GI): Soft to palpation, Tenderness to palpation present (GI) in the RLQ ( moderate to severe) and suprapubicly ( moderate) and no guarding Auscultation: normal bowel sounds : General: Yes no CVA tenderness Back/Spine/Pelvis: Back: no CVA tenderness Skin: General skin exam: no rashes or lesions noted Neuro: Cranial nerves: Yes CN's II-XII intact bilaterally and Yes Equal, round and reactive pupils present Cognition (Neuro): normal cognition Motor exam (neuro): 5/5 motor strength present throughout Extrem: General: Yes normal to inspection Psych: Appearance: grossly normal Speech and movement: Normal speech and movement present Affect: normal affect Attitude: cooperative Thought process: Normal thought process present Thought content: Normal thought content present Course Course Course Narrative: 41-year-old female who had laser lithotripsy on 06/06/2021 with J-tube placement in the right ureter who presents emergency department for evaluation of painful urination, frequency, sharp moderate to severe suprapubic and right lower quadrant pain x2 days. Initial vital signs were normal. Physical examination did reveal moderate suprapubic tenderness with moderate to severe right lower quadrant tenderness and no CVA tenderness. Differential includes but is not limited to injury from a surgical procedure, migration of the stent, appendicitis, acute cystitis, pancreatitis, diverticulitis. Laboratory evaluation was ordered. CT scan of the abdomen pelvis with IV contrast will be obtained. Patient's pain was treated with morphine 4 mg IV, Zofran 4 mg IV. She was also ordered to get normal saline IV x1 L. 1259: Patient's laboratory evaluation revealed normal kidney function. The p atient's urine microscopic revealed 150 RBCs, 29 WBCs, trace bacteria and 1+ squamous cells. Urine test was negative. CT scan of the abdomen pelvis with IV contrast did reveal a stent in the right ureter which is in good position. The patient has a 1-2 mm distal ureteral stone adjacent to the stent. This may be the cause for the patient's pain. The patient did receive morphine 4 mg IV x2 with some improvement of her pain. She was ordered to get Toradol 15 mg IV. I did discuss this finding with Dr. Cordova over tiger text. We will try to manage the patient's pain in the stent will be removed tomorrow in Dr. Cordova is office. The patient's tramadol will be discontinued and the patient will be treated with morphine 15 mg every 4-6 hours as needed for pain. She was advised to continue taking her naproxen . The patient was advised to stop taking her trimethoprim and I will start her on ciprofloxacin 500 mg twice a day for 7 days possible urinary tract infection. Medical Decision Making Lab Data Result diagrams: 06/15/21 09:48 06/15/21 09:48 Labs: Lab Results 06/15/21 06/15/21 06/15/21 Range/Units 09:10 09:10 09:48 WBC 8.3 (4.8-10.8) X10*3/uL RBC 4.14 L (4.20-5.50) X10*6/uL Hgb 11.9 L (12.0-16.0) g/dl Hct 36.6 L (37.0-47.0) % MCV 88.4 (80.0-98.0) fL MCH 28.7 (27.0-33.0) pg MCHC 32.5 (31.0-35.0) g/dl RDW 13.2 (11.0-16.0) % Plt Count 299 (160-400) X10*3/uL MPV 10.6 (9.4-12.3) fL Immature Gran % (Auto) 0.4 (0.0-0.4) % Neut % (Auto) 48.8 (45-73) % Lymph % (Auto) 37.6 (20-40) % [place] % (Auto) 6.5 (2-11) % Eos % (Auto) 6.2 H (0-4) % Baso % (Auto) 0.5 (0-2) % Lymph # (Auto) 3.1 (1.2-4.9) X10*3/uL [place] # (Auto) 0.5 (0.1-1.2) X10*3/uL Eos # (Auto) 0.5 H (0.0-0.4) X10*3/uL Baso # (Auto) 0.0 (0.0-0.2) X10*3/uL Abs Immat Gran (auto) 0.03 (0.00-0.03) X10*3/uL Absolute Neuts (auto) 4.0 (2.0-8.3) x10*3/uL Absolute Nucleated RBC 0.000 (0.0-0.012) X10*3/uL Nucleated RBC % (auto) 0.0 (0.0-0.2) /100WBC Sodium (135-145) mmol/L Potassium (3.3-5.1) mmol/L Chloride (96-108) mmol/L Carbon Dioxide (22-29) mmol/L Anion Gap (12-20) BUN (9-16) mg/dL Creatinine (0.5-1.4) mg/dL Estim Creat Clear Calc Estimated GFR Random Glucose (60-115) mg/dL Lactic Acid (0.5-2.0) mmol/L Calcium (8.4-10.2) mg/dL Total Bilirubin (0.0-1.0) mg/dL AST (5-31) U/L ALT (0-31) U/L Alkaline Phosphatase (39-117) U/L Total Protein (6.5-8.0) g/dL Albumin (3.5-5.0) g/dL Lipase (8-78) U/L Urine Color YELLOW Urine Appearance HAZY Urine pH 6.0 (5.0-8.0) Ur Specific [place] >= 1.030 H (1.005-1.025) Urine Protein 2+ H (NEG-TRACE) MG/DL Urine Glucose (UA) NEG (NEG) MG/DL Urine Ketones NEG (NEG) MG/DL Urine Blood 3+ H (NEG) Urine Nitrite NEG (NEG) Ur Leukocyte Esterase 1+ H (NEG) Urine RBC 76-150 H (0) /HPF Urine WBC 15-29 H (0-4) /HPF Ur Squamous Epith 1+ /LPF Cells Urine Bacteria TRACE /LPF Urine Test NEGATIVE (NEGATIVE) 06/15/21 06/15/21 Range/Units 09:48 09:55 WBC (4.8-10.8) X10*3/uL RBC (4.20-5.50) X10*6/uL Hgb (12.0-16.0) g/dl Hct (37.0-47.0) % MCV (80.0-98.0) fL MCH (27.0-33.0) pg MCHC (31.0-35.0) g/dl RDW (11.0-16.0) % Plt Count (160-400) X10*3/uL MPV (9.4-12.3) fL Immature Gran % (Auto) (0.0-0.4) % Neut % (Auto) (45-73) % Lymph % (Auto) (20-40) % [place] % (Auto) (2-11) % Eos % (Auto) (0-4) % Baso % (Auto) (0-2) % Lymph # (Auto) (1.2-4.9) X10*3/uL [place] # (Auto) (0.1-1.2) X10*3/uL Eos # (Auto) (0.0-0.4) X10*3/uL Baso # (Auto) (0.0-0.2) X10*3/uL Abs Immat Gran (auto) (0.00-0.03) X10*3/uL Absolute Neuts (auto) (2.0-8.3) x10*3/uL Absolute Nucleated RBC (0.0-0.012) X10*3/uL Nucleated RBC % (auto) (0.0-0.2) /100WBC Sodium 138 (135-145) mmol/L Potassium 4.3 (3.3-5.1) mmol/L Chloride 106 (96-108) mmol/L Carbon Dioxide 26 (22-29) mmol/L Anion Gap 10 L (12-20) BUN 14 (9-16) mg/dL Creatinine 0.85 (0.5-1.4) mg/dL Estim Creat Clear Calc 97.8 Estimated GFR > 60 Random Glucose 94 (60-115) mg/dL Lactic Acid 1.3 (0.5-2.0) mmol/L Calcium 9.7 (8.4-10.2) mg/dL Total Bilirubin 0.3 (0.0-1.0) mg/dL AST 12 (5-31) U/L ALT 16 (0-31) U/L Alkaline Phosphatase 77 (39-117) U/L Total Protein 6.5 (6.5-8.0) g/dL Albumin 3.8 (3.5-5.0) g/dL Lipase 27 (8-78) U/L Urine Color Urine Appearance Urine pH (5.0-8.0) Ur Specific [place] (1.005-1.025) Urine Protein (NEG-TRACE) MG/DL Urine Glucose (UA) (NEG) MG/DL Urine Ketones (NEG) MG/DL Urine Blood (NEG) Urine Nitrite (NEG) Ur Leukocyte Esterase (NEG) Urine RBC (0) /HPF Urine WBC (0-4) /HPF Ur Squamous Epith Cells /LPF Urine Bacteria /LPF Urine Test (NEGATIVE) Discharge Plan Discharge Clinical Impression: Colic, ureteral, Calculus of distal right ureter Patient Disposition: Home, Self-Care Instructions: Renal Colic (ED) Additional Instructions: Your blood work was unremarkable. The CT scan of your abdomen pelvis revealed that the stent was in a good position and is most likely not the cause of your pain. You do have a 1-2 mm stone in the distal ureter which is outside of the stent and this may be causing your pain. I want you to stop taking tramadol. Continue to take naproxen twice a day and Tylenol extra-strength 500 mg, 2 pills every 4-6 hours as needed for pain For pain not relieved by ibuprofen or Tylenol take morphine 15 mg pills, 1 pill every 4 hours as needed for pain. Do not drive or work while taking this medication since they can cause sleepiness. Morphine is a narcotic medication that can be addicting. If you are concerned about addiction you can ask the pharmacist for less pills or do not get this prescription filled. I am concerned that you may have a urine infection you received ceftriaxone 1 g IV, this is an antibiotic that will last until tomorrow. Stop taking your trimethoprim Tomorrow morning, start take ciprofloxacin 500 mg pills, 1 pill twice a day for 7 days. Follow-up with Dr. Cordova tomorrow morning as scheduled for stent removal. Please return to the emergency department if your symptoms get worse or if you develop any symptoms that are concerning to you. Prescriptions: New morphine 15 mg tablet 15 mg PO Q4-6H PRN (Reason: pain) Qty: 14 0RF Rx Instructions: Patient may request partial fill ciprofloxacin HCl [Cipro] 500 mg tablet 500 mg PO Q12H 5 Days Qty: 10 0RF No Action phenazopyridine [Pyridium] 100 mg tablet 100 mg PO TID PRN (Reason: spasm) 4 Days Qty: 12 0RF trimethoprim 100 mg tablet 100 mg PO Q12H 10 Days Qty: 20 0RF tramadol 50 mg tablet 50 mg PO Q6H PRN (Reason: pain (scale score 4-6)) Qty: 14 0RF tamsulosin 0.4 mg capsule 0.4 mg PO BEDTIME 14 Days Qty: 14 0RF naproxen 500 mg tablet 500 mg PO BID PRN (Reason: pain) 7 Days Qty: 14 0RF tramadol 50 mg tablet 50 mg PO Q6H PRN (Reason: pain (scale score 4-6)) Qty: 14 0RF tamsulosin 0.4 mg capsule 0.4 mg PO BEDTIME 14 Days Qty: 14 0RF naproxen 500 mg tablet 500 mg PO BID PRN (Reason: pain) 7 Days Qty: 14 0RF glucosamine-chondroitin [Osteo Bi-Flex] 250-200 mg tablet 2 tab PO TID 0RF Rx Instructions: give after food/meal ibuprofen 800 mg tablet 800 mg PO TID PRN (Reason: Pain) 0RF
[2021-06-15 09:26] LABS: Bacteria Urine TRACE /LPF; Squamous Epithelial Cell Urine 1+ /LPF
[2021-06-15 09:52] LABS: MANUAL DIFF FLAG NO
[2021-06-15] MEDS: Morphine Sulfate 4 MG/ML CARTRIDGE IVPUSH ×2 (09:56→12:18)
[2021-06-15] MEDS: ondansetron HCL 4 MG/2 ML VIAL IVPUSH (09:56)
[2021-06-15] MEDS: 0.9 % Sodium Chloride 1,000 ML 999 ML IV (09:56)
[2021-06-15 09:58] LABS: Basophils Percent Auto 0.5 % (0-2); Eosinophils Absolute Auto 0.5 X10*3/uL (0.0-0.4); Eosinophils Percent Auto 6.2 % (0-4); Hematocrit 36.6 % (37.0-47.0); Hemoglobin 11.9 g/dl (12.0-16.0); Imm Gran Abs Auto 0.03 X10*3/uL (0.00-0.03); Imm Gran Pct Auto 0.4 % (0.0-0.4); Lymphocytes Absolute Auto 3.1 X10*3/uL (1.2-4.9); Lymphocytes Percent Auto 37.6 % (20-40); Mean Corpuscular HGB Conc 32.5 g/dl (31.0-35.0); Mean Corpuscular Hemoglobin 28.7 pg (27.0-33.0); Mean Corpuscular Volume 88.4 fL (80.0-98.0); Mean Platelet Volume 10.6 fL (9.4-12.3); Monocytes Absolute Auto 0.5 X10*3/uL (0.1-1.2); Monocytes Percent Auto 6.5 % (2-11); Neutrophils Percent Auto 48.8 % (45-73); Platelet Count 299 X10*3/uL (160-400); Red Blood Count 4.14 X10*6/uL (4.20-5.50); Red Cell Distribution Width 13.2 % (11.0-16.0); White Blood Count 8.3 X10*3/uL (4.8-10.8)
[2021-06-15 10:12] VITALS: BP 97/60; PULSE 79; RESP 14; O2SAT 98
[2021-06-15 10:14] LABS: Lactic Acid 1.3 mmol/L (0.5-2.0)
[2021-06-15 10:18] LABS: Alanine Aminotransferase 16 U/L (0-31); Albumin Level 3.8 g/dL (3.5-5.0); Alkaline Phosphatase 77 U/L (39-117); Anion Gap 10 (12-20); Aspartate Amino Transferase 12 U/L (5-31); Bilirubin Total 0.3 mg/dL (0.0-1.0); Blood Urea Nitrogen 14 mg/dL (9-16); Calcium 9.7 mg/dL (8.4-10.2); Carbon Dioxide 26 mmol/L (22-29); Chloride 106 mmol/L (96-108); Creatinine Clr Calc Pharmacy 97.8; Estimated Glomerular Filt Rate > 60; Glucose Random 94 mg/dL (60-115); Lipase 27 U/L (8-78); Potassium 4.3 mmol/L (3.3-5.1); Sodium 138 mmol/L (135-145); Total Protein 6.5 g/dL (6.5-8.0)
[2021-06-15] MEDS: cefTRIAXone sodium 1 GM in 0.9 % Sodium Chloride 50 ML IV (10:20)
[2021-06-15] MEDS: iohexoL 350 MG/ML 100 ML INFUS..BTL IV (10:56)
[2021-06-15 12:54] VITALS: BP 120/71; PULSE 74; RESP 14; O2SAT 97
[2021-06-15] MEDS: Ketorolac Tromethamine 30 MG/ML VIAL 15 MG IVPUSH (12:57)
== END 2021-06-15 13:35 | disposition home or self-care (01) ==
PROVIDERS: Emergency Provider Emergency Medicine Emergency Medical Services; PCP Internal Medicine
DX: N20.1 Calculus of ureter (principal); Z79.899 Other long term (current) drug therapy
CPT/HCPCS: 36415; 74177; 80053; 81001; 81025; 83605; 83690; 85025; 87040; 87086; 96361; 96374; 96375; 96376; 99283; 99284; J0696; J1885; J2270; J2405; Q9967

== ENCOUNTER → 2021-06-16 09:08 | Outpatient (BNVA) | payer OTHER, SELFPAY | PROVIDERS: PCP Internal Medicine; Visit Provider Urology | DX: T83.122A Displacement of indwelling ureteral stent, initial encounter (principal); Z87.442 Personal history of urinary calculi | CPT/HCPCS: 52000; 52310; 99212 ==

== ENCOUNTER 2021-06-16 11:32 | Day surgery (SDC) | payer OTHER, SELFPAY ==
[2021-06-16] VITALS (7 sets, daily range): BP systolic 99–121; BP diastolic 60–75; PULSE 63–97; RESP 16–18; TEMP 36.1–36.3; O2SAT 96–100; BMI 38.9
--- NOTE | ~2021-06-16 | FL_ITS ---
EXAMINATION: XR FLUOROSCOPY WITH IMAGES CLINICAL INFORMATION: Right stent removal. COMPARISON: CT abdomen and pelvis 06/15/2021; fluoroscopic spot images 06/06/2021 TECHNIQUE: Fluoroscopy performed by Dr. Hal Cordova. Fluoroscopy time: 4 seconds Total cumulative dose: 1.15 mGy Images: 1 FINDINGS: Fluoroscopic spot view bladder shows no ureteral stent. FL/FL guidance in OR IMPRESSION: Fluoroscopy for urologic procedure.
--- NOTE | 2021-06-16 12:11 | P.CONAN_ITS ---
[facility] Active Problems Active Problems: All Active Problems (Updated 06/16/21 @ 10:02 by Hal Cordova MD) Ureteral stent displacement (Acute) Retained ureteral stent (Acute) Patella-femoral syndrome (Acute) Pain of right thumb (Acute) Well woman exam with routine gynecological exam (Acute) Cervical cancer screening (Acute) Kidney calculus (Acute) Past Medical History Medical History COVID-19 vaccine series completed Kidney calculus Family History Family history of problems with anesthesia: No Surgical History Surgical History History of tubal ligation Hx of eye surgery Hx of hernia repair Hx of lithotripsy History of Problems with Anesthesia: No Social History Social History Alcohol intake: former Patient Tobacco Use Status: Never used Tobacco Are you DNR?: No Advance Directives: No Advance Directives Information Provided: Yes Patient : No (hx tubal ligation) Current occupational status: employed Current occupation: Charge Nurse Meds Allergies Allergy/AdvReac Type Severity Reaction Status Date / Time No Known Allergies Allergy Verified 06/16/21 11:53 Home Medications Medication Instructions Recorded Confirmed Last Taken Type glucosamine-chond 2 tab PO TID 08/27/20 05/31/21 Unknown History roitin 250 mg-200 mg tablet (Osteo Bi-Flex) ibuprofen 800 mg 800 mg PO TID 03/21/21 05/31/21 06/14/21 History tablet PRN Exam Exam Date and Time: June 16, 2021 1211 Height,Weight and Vital Signs: Height 5 ft 3 in Weight 99.79 kg Last Vital Signs Temp 97.0 F 06/16/21 11:44 Pulse 97 06/16/21 11:44 Resp 18 06/16/21 11:44 BP 108/73 06/16/21 11:44 Pulse Ox 98 06/16/21 11:44 Airway Mallampati Class: III TM Dist: >3cm Neck ROM: Full Assessment and Plan Assessment Anesthesia Assessment: Anesthesia Plan Discussed and Chart Reviewed Final Anesthetic Review Family History of Problems with Anesthesia: No History of Problems with Anesthesia: No NPO: Yes ASA Class: III Final Preanesthetic Review: Meds/Allgs Chart Reviewed, Consent Obtained/Reviewed and Anes Risks/Benef Reviewed Patient Risk: Intermediate Procedure Risk: Low Anesthetic Plan Anesthetic Plan: GA Disposition: Standard PACU
--- NOTE | 2021-06-16 12:14 | MHC.SHP ---
Pre-Procedural Eval Section A Date of Service: 06/16/21 The patient is an INPATIENT: No Changes since office visit: Yes Cold of Flu in the past 2 weeks, Yes New Medical Problems, Yes Changes in Medication and Yes Patient answered all questions The History & Physical has been completed within 30 days and I have reviewed it.: Yes Section B Chief Complaint: migrating stent Allergies: Allergies Allergy/AdvReac Type Severity Reaction Status Date / Time No Known Allergies Allergy Verified 06/16/21 11:53 Plan Diagnosis/Plan: Unchanged ( cystoscopy, right retrograde with stent removal of migrated right stent) I have reviewed the history and physical and performed a pertinent physical examination on my patient. No changes have occurred unless specified.
[2021-06-16] MEDS: Lactated Ringers 1,000 ML 100 ML IVCONT (12:16)
--- NOTE | 2021-06-16 12:52 | W.PM.OPN ---
Operative Note Operative Note Date of Service: 06/16/21 Narrative: PreOperative Diagnosis: right migrated ureteric stent Post Operative Diagnosis: right migrated ureteric stent Procedure: cystoscopy, ureteroscopy, foreign body removal from right ureter Surgeon: Dr Hal Cordova Anesthesia: general Indications for procedure: 41-year-old female who underwent ureteroscopy with laser lithotripsy and stent placement last week. Came to office for stent removal. Stent had migrated from bladder proximally. Recommendation for removal in operating room via ureteroscopy in under anesthesia. Procedure: After informed consent was verified the patient was brought to the operating room and placed in a supine position. Anesthesia was administered per protocol. oral antibiotics have been taken in the morning. Cystoscopy performed. Guidewire placed up right ureteric orifice. Fluoroscopy used to show that stent had migrated proximally. Switched to rigid ureteroscopy. Scope was advanced alongside wire. Distal end of stent encountered. Using a 0 tip basket the bottom of the stent was able to be less food in grasped and the stent was removed. This was confirmed on fluoroscopy. She tolerated procedure well was extubated in operating room transferred in stable condition to recovery area. Pathology: Drains:
[2021-06-16] MEDS: Phenazopyridine HCL 100 MG TABLET PO (13:40)
[2021-06-16] MEDS: Acetaminophen 325 MG TABLET 650 MG PO (13:40)
== END 2021-06-16 14:29 | disposition home or self-care (01) ==
PROVIDERS: PCP Internal Medicine; Visit Provider Urology
PROC: (CPT 52310; principal; 2021-06-16 12:00)
DX: T83.122A Displacement of indwelling ureteral stent, initial encounter (principal); Z96.0 Presence of urogenital implants; R10.84 Generalized abdominal pain; N20.0 Calculus of kidney; Y73.1 Therapeutic (nonsurgical) and rehabilitative gastroenterology and urology devices associated with adverse incidents; Y92.9 Unspecified place or not applicable
CPT/HCPCS: 52310; J1100; J2250; J2405; J3010; Q9967

== ENCOUNTER 2021-09-30 13:01 | Outpatient (REF) | payer OTHER, SELFPAY ==
[2021-09-30 14:10] LABS: Alanine Aminotransferase 23 U/L (0-31); Albumin Level 3.9 g/dL (3.5-5.0); Alkaline Phosphatase 76 U/L (39-117); Anion Gap 11 (12-20); Aspartate Amino Transferase 15 U/L (5-31); Bilirubin Total 0.3 mg/dL (0.0-1.0); Blood Urea Nitrogen 12 mg/dL (9-16); Calcium 9.2 mg/dL (8.4-10.2); Carbon Dioxide 30 mmol/L (22-29); Chloride 104 mmol/L (96-108); Cholesterol 226 mg/dL; Estimated Glomerular Filt Rate > 60; Glucose Fasting 88 mg/dL (60-99); HDL Cholesterol 47 mg/dL; LDL Cholesterol Calculated 148 mg/dl; Potassium 4.5 mmol/L (3.3-5.1); Sodium 140 mmol/L (135-145); Total Protein 6.3 g/dL (6.5-8.0); Triglycerides 159 mg/dL
[2021-09-30 14:32] LABS: Vitamin D 25-OH Total 17.5 ng/mL (>30)
== END 2021-09-30 13:02 | disposition home or self-care (01) ==
LOC: HO.LAB 13:01
PROVIDERS: PCP Internal Medicine; Visit Provider Internal Medicine
DX: E78.00 Pure hypercholesterolemia, unspecified (principal); E55.9 Vitamin D deficiency, unspecified; N20.0 Calculus of kidney
CPT/HCPCS: 36415; 80053; 80061; 82306

== ENCOUNTER 2022-01-13 15:01 | Outpatient (REF) | payer OTHER, SELFPAY ==
[2022-01-13 15:17] LABS: MANUAL DIFF FLAG NO
[2022-01-13 15:32] LABS: Basophils Percent Auto 0.5 % (0-2); Eosinophils Absolute Auto 0.2 X10*3/uL (0.0-0.4); Eosinophils Percent Auto 2.9 % (0-4); Hematocrit 39.7 % (37.0-47.0); Hemoglobin 13.3 g/dl (12.0-16.0); Imm Gran Abs Auto 0.01 X10*3/uL (0.00-0.03); Imm Gran Pct Auto 0.1 % (0.0-0.4); Lymphocytes Absolute Auto 3.3 X10*3/uL (1.2-4.9); Lymphocytes Percent Auto 39.5 % (20-40); Mean Corpuscular HGB Conc 33.5 g/dl (31.0-35.0); Mean Corpuscular Hemoglobin 29.2 pg (27.0-33.0); Mean Corpuscular Volume 87.3 fL (80.0-98.0); Mean Platelet Volume 10.9 fL (9.4-12.3); Monocytes Absolute Auto 0.5 X10*3/uL (0.1-1.2); Neutrophils Absolute Auto 4.3 x10*3/uL (2.0-8.3); Platelet Count 286 X10*3/uL (160-400); Red Blood Count 4.55 X10*6/uL (4.20-5.50); Red Cell Distribution Width 13.3 % (11.0-16.0); White Blood Count 8.4 X10*3/uL (4.8-10.8)
[2022-01-13 15:37] LABS: Appearance Urine Clear; Color Urine Yellow; Glucose Urine UA Negative (Negative); Leukocyte Esterase Urine Negative (Negative); Nitrite Urine Negative (Negative); PH 5.5 (5.0-9.0); Specific Gravity - Urine >= 1.030 (1.005-1.025); Urine Blood Negative (Negative); Urine Ketones Negative (Negative); Urine Protein Negative (Neg-Trace)
[2022-01-13 15:50] LABS: Alanine Aminotransferase 13 U/L (0-31); Alkaline Phosphatase 83 U/L (39-117); Anion Gap 14 (12-20); Aspartate Amino Transferase 13 U/L (5-31); Bilirubin Total 0.3 mg/dL (0.0-1.0); Blood Urea Nitrogen 15 mg/dL (9-16); Calcium 9.5 mg/dL (8.4-10.2); Carbon Dioxide 23 mmol/L (22-29); Chloride 106 mmol/L (96-108); Estimated Glomerular Filt Rate > 60; Glucose Random 109 mg/dL (60-115); Sodium 139 mmol/L (135-145); Total Protein 6.8 g/dL (6.5-8.0)
== END 2022-01-13 15:02 | disposition home or self-care (01) ==
LOC: HO.LAB 15:01
PROVIDERS: PCP Internal Medicine; Visit Provider Internal Medicine
DX: R10.9 Unspecified abdominal pain (principal); R30.0 Dysuria
CPT/HCPCS: 36415; 80053; 81003; 85025; 87086

== ENCOUNTER 2022-02-08 10:57 | Emergency (ER) | payer OTHER, SELFPAY ==
[2022-02-08 12:37] VITALS: BP 107/66; PULSE 60; RESP 17; TEMP 36.2; O2SAT 99; BMI 40.7
[2022-02-08 13:07] LABS: MANUAL DIFF FLAG NO
[2022-02-08 13:09] LABS: Basophils Absolute Auto 0.1 X10*3/uL (0.0-0.2); Basophils Percent Auto 0.7 % (0-2); Eosinophils Absolute Auto 0.3 X10*3/uL (0.0-0.4); Eosinophils Percent Auto 3.6 % (0-4); Hematocrit 42.4 % (37.0-47.0); Hemoglobin 13.7 g/dl (12.0-16.0); Imm Gran Abs Auto 0.02 X10*3/uL (0.00-0.03); Imm Gran Pct Auto 0.3 % (0.0-0.4); Lymphocytes Absolute Auto 3.2 X10*3/uL (1.2-4.9); Lymphocytes Percent Auto 44.7 % (20-40); Mean Corpuscular HGB Conc 32.3 g/dl (31.0-35.0); Mean Corpuscular Hemoglobin 28.5 pg (27.0-33.0); Mean Corpuscular Volume 88.3 fL (80.0-98.0); Mean Platelet Volume 10.8 fL (9.4-12.3); Monocytes Absolute Auto 0.3 X10*3/uL (0.1-1.2); Monocytes Percent Auto 4.7 % (2-11); Neutrophils Absolute Auto 3.3 x10*3/uL (2.0-8.3); Platelet Count 288 X10*3/uL (160-400); Red Cell Distribution Width 12.8 % (11.0-16.0); White Blood Count 7.2 X10*3/uL (4.8-10.8)
[2022-02-08 13:12] LABS: Appearance Urine Clear; Color Urine Yellow; Glucose Urine UA Negative (Negative); Leukocyte Esterase Urine Trace (Negative); Nitrite Urine Negative (Negative); UMIC TRIGGER UACC YES; Urine Blood Negative (Negative); Urine Ketones Negative (Negative); Urine Protein Negative (Neg-Trace)
[2022-02-08 13:14] LABS: UPreg QC Valid YES; Urine Pregnancy NEGATIVE (NEGATIVE)
[2022-02-08 13:18] LABS: Bacteria Urine None Seen (None Seen); Hyaline Casts Urine 0-2 /LPF (0-2); Squamous Epithelial Cell Urine 0-2 /HPF (0-2); WBC Urine 0-5 /HPF (0-5)
[2022-02-08 13:26] LABS: Alanine Aminotransferase 20 U/L (0-31); Albumin Level 4.3 g/dL (3.5-5.0); Alkaline Phosphatase 81 U/L (39-117); Anion Gap 14 (12-20); Aspartate Amino Transferase 15 U/L (5-31); Bilirubin Total 0.6 mg/dL (0.0-1.0); Blood Urea Nitrogen 11 mg/dL (9-16); Calcium 9.4 mg/dL (8.4-10.2); Carbon Dioxide 28 mmol/L (22-29); Chloride 101 mmol/L (96-108); Creatinine Clr Calc Pharmacy 116.7; Estimated Glomerular Filt Rate > 60; Glucose Random 95 mg/dL (60-115); Lipase 28 U/L (8-78); Sodium 139 mmol/L (135-145)
== END 2022-02-08 23:10 | disposition left against medical advice (07) ==
PROVIDERS: Emergency Provider Emergency Medicine; PCP Internal Medicine
DX: R10.31 Right lower quadrant pain (principal); R11.0 Nausea
CPT/HCPCS: 36415; 80053; 81001; 81025; 83690; 85025; 99282; 99283

== ENCOUNTER 2022-02-23 21:20 | Emergency (ER) | payer OTHER, SELFPAY ==
--- NOTE | ~2022-02-23 | XR_ITS ---
EXAMINATION: XR ANKLE, LEFT CLINICAL INFORMATION: Ankle pain COMPARISON: None TECHNIQUE: AP, lateral, and mortise views of the left ankle. FINDINGS: There is mild lateral malleolar soft tissue swelling. The ankle mortise and subtalar joints are normal. There is a small calcaneal heel and retrocalcaneal enthesophytes. No visible fracture seen. XR/XR ankle LT min 3V IMPRESSION: Lateral malleolar soft tissue swelling most suggestive of ligamentous injury. No visible acute fracture or dislocation seen. Small calcaneal heel and retrocalcaneal enthesophytes.
[2022-02-23 21:32] VITALS: BP 97/58; PULSE 93; RESP 18; TEMP 37.2; O2SAT 98; BMI 40.7
[2022-02-23 23:41] VITALS: BP 110/71; PULSE 82; RESP 16; TEMP 36.9; O2SAT 97
--- NOTE | 2022-02-24 00:23 | ED.LOWEXIN ---
HPI - Extremity Injury (Lower) General Chief Complaint: Extremity Injury, Lower Stated Complaint: left ankle inj Time Seen by Provider: 02/24/22 00:22 Source: patient Mode of arrival: ambulatory Limitations: no limitations History of Present Illness HPI Narrative: Patient complaining of pain in left ankle pain after missing a step comes with swelling of the lateral aspect of the ankle no other injuries Related Data Home Medications Medication Instructions Recorded Confirmed glucosamine-chondroitin 250 mg-200 2 tab PO TID 08/27/20 05/31/21 mg tablet (Osteo Bi-Flex) ibuprofen 800 mg tablet 800 mg PO TID PRN Pain 03/21/21 05/31/21 Previous Rx's Medication Instructions Recorded naproxen 500 mg tablet 500 mg PO BID PRN pain 7 days #14 03/30/21 tabs tamsulosin 0.4 mg capsule 0.4 mg PO BEDTIME 14 days #14 caps 03/30/21 tramadol 50 mg tablet 50 mg PO Q6H PRN pain (scale score 03/30/21 4-6) #14 tabs naproxen 500 mg tablet 500 mg PO BID PRN pain 7 days #14 06/06/21 tabs phenazopyridine 100 mg tablet 100 mg PO TID PRN spasm 4 days #12 06/06/21 (Pyridium) tabs tamsulosin 0.4 mg capsule 0.4 mg PO BEDTIME 14 days #14 caps 06/06/21 tramadol 50 mg tablet 50 mg PO Q6H PRN pain (scale score 06/06/21 4-6) #14 tabs trimethoprim 100 mg tablet 100 mg PO Q12H 10 days #20 tabs 06/06/21 ciprofloxacin HCl 500 mg tablet 500 mg PO Q12H 5 days #10 tabs 06/15/21 (Cipro) morphine 15 mg immediate release 15 mg PO Q4-6H PRN pain #14 tabs 06/15/21 tablet naproxen 500 mg tablet 500 mg PO BID PRN pain #30 tabs 02/24/22 tramadol 50 mg tablet 50 mg PO Q6H PRN pain #20 tabs 02/24/22 Allergies Allergy/AdvReac Type Severity Reaction Status Date / Time No Known Allergies Allergy Verified 06/16/21 11:53 Review of Systems Review of Systems: Yes all other systems are reviewed and are negative PMFSH Past Medical History Medical History COVID-19 vaccine series completed Kidney calculus Surgical History History of tubal ligation Hx of eye surgery Hx of hernia repair Hx of lithotripsy Social History Social History Alcohol intake: former Patient Tobacco Use Status: Never used Tobacco Advance Directives: No Advance Directives Information Provided: No Current occupational status: employed Current occupation: Charge Nurse Physical Exam Vital Signs: Vital Signs: Last Vital Signs Temp 98.2 F 02/24/22 01:16 Pulse 69 02/24/22 01:16 Resp 16 02/24/22 01:16 BP 130/80 02/24/22 01:16 Pulse Ox 98 02/24/22 01:16 O2 Del Method 02/24/22 01:16 BMI result Body Mass Index 40.7 Appearance: Alert. Oriented X3. No acute distress. Neck: Normal inspection. Neck supple. CVS: Normal heart rate and rhythm. Pulses normal. Respiratory: No respiratory distress. Equal air entry bilateral, Abdomen: Soft and nontender. Bowel sounds are present, Skin: Skin warm and dry. Normal skin color. Extremities: No lower extremity edema. No calf tenderness left ankle soft tissue swelling lateral malleolus neurovascular intact Neuro: Oriented X 3. MDM - Extremity Injury (Lower) MDM Narrative Medical decision making narrative: X-rays negative for fracture, patient was given boots and crutches Discharge Plan Discharge Clinical Impression: Left ankle sprain Patient Disposition: Home, Self-Care Instructions: Ankle Sprain (ED) Additional Instructions: Use crutches and wear boot Pain medication as prescribed Rest and elevate your left leg Prescriptions: New naproxen 500 mg tablet 500 mg PO BID PRN (Reason: pain) Qty: 30 0RF tramadol 50 mg tablet 50 mg PO Q6H PRN (Reason: pain) Qty: 20 0RF No Action phenazopyridine [Pyridium] 100 mg tablet 100 mg PO TID PRN (Reason: spasm) 4 Days Qty: 12 0RF trimethoprim 100 mg tablet 100 mg PO Q12H 10 Days Qty: 20 0RF tramadol 50 mg tablet 50 mg PO Q6H PRN (Reason: pain (scale score 4-6)) Qty: 14 0RF tamsulosin 0.4 mg capsule 0.4 mg PO BEDTIME 14 Days Qty: 14 0RF naproxen 500 mg tablet 500 mg PO BID PRN (Reason: pain) 7 Days Qty: 14 0RF tramadol 50 mg tablet 50 mg PO Q6H PRN (Reason: pain (scale score 4-6)) Qty: 14 0RF tamsulosin 0.4 mg capsule 0.4 mg PO BEDTIME 14 Days Qty: 14 0RF naproxen 500 mg tablet 500 mg PO BID PRN (Reason: pain) 7 Days Qty: 14 0RF morphine 15 mg tablet 15 mg PO Q4-6H PRN (Reason: pain) Qty: 14 0RF Rx Instructions: Patient may request partial fill ciprofloxacin HCl [Cipro] 500 mg tablet 500 mg PO Q12H 5 Days Qty: 10 0RF glucosamine-chondroitin [Osteo Bi-Flex] 250-200 mg tablet 2 tab PO TID Rx Instructions: give after food/meal ibuprofen 800 mg tablet 800 mg PO TID PRN (Reason: Pain) Stand Alone Forms: Work/School Release Interventions: ED Discharge Assessment Last Done: 02/24/22 02:02 Discharge Date/Time: 02/24/22 00:56
[2022-02-24] MEDS: NaPROXEN 500 MG TABLET PO (00:48)
[2022-02-24] MEDS: traMADoL HCL 50 MG TABLET PO (00:48)
[2022-02-24 01:16] VITALS: BP 130/80; PULSE 69; RESP 16; TEMP 36.8; O2SAT 98
== END 2022-02-24 00:56 | disposition home or self-care (01) ==
PROVIDERS: Emergency Provider Internal Medicine
DX: S93.402A Sprain of unspecified ligament of left ankle, initial encounter (principal); W10.8XXA Fall (on) (from) other stairs and steps, initial encounter; Y93.89 Activity, other specified; Y92.038 Other place in apartment as the place of occurrence of the external cause; Y99.9 Unspecified external cause status
CPT/HCPCS: 73610; 99283; 99284

== ENCOUNTER 2022-03-29 10:34 | Outpatient (REF) | payer OTHER, SELFPAY ==
[2022-03-29 16:05] LABS: CT PCR NOT DETECTED (Not Detect.); NG PCR NOT DETECTED (Not Detect.)
[2022-03-30 10:15] LABS: BV Int Neg Control Negative (Negative); BV Int Pos Control Positive (Positive)
== END 2022-03-29 10:35 | disposition home or self-care (01) ==
LOC: HO.LNP 10:34
PROVIDERS: Visit Provider Advanced Practice Midwife
DX: N89.8 Other specified noninflammatory disorders of vagina (principal); N92.0 Excessive and frequent menstruation with regular cycle; B00.9 Herpesviral infection, unspecified; N94.6 Dysmenorrhea, unspecified; Z20.2 Contact with and (suspected) exposure to infections with a predominantly sexual mode of transmission
CPT/HCPCS: 87480; 87491; 87510; 87591; 87660; 99212

== ENCOUNTER 2022-08-09 07:38 | Emergency (ER) | payer OTHER, SELFPAY ==
--- NOTE | ~2022-08-09 | XR_ITS ---
EXAMINATION: XR CHEST CLINICAL INFORMATION: Chest pain COMPARISON: 02/05/2018 TECHNIQUE: 2 views of the chest were obtained. FINDINGS: Lungs are mildly hypoinflated. No other Significant abnormality is noted involving the heart, lungs, mediastinum, bony thorax or soft tissues. XR/XR chest 2V IMPRESSION: No acute intrathoracic disease.
[2022-08-09 07:58] VITALS: BP 117/80; PULSE 77; RESP 18; TEMP 36.4; O2SAT 96; BMI 38.0
[2022-08-09 08:02] VITALS: O2SAT 96
--- NOTE | 2022-08-09 08:09 | ED_ITS ---
HPI - General Adult General Chief complaint: Syncope Stated complaint: Near syncope Time Seen by Provider: 08/09/22 08:05 Source: patient Mode of arrival: ambulatory Limitations: no limitations History of Present Illness HPI narrative: Patient is a 42 year old assigned female at with a history of kidney stones presenting to the emergency department today after a near syncopal episode. 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 Reports having her period and took 1000mg Tylenol for mens trual pain this morning without relief. No witnessed seizure or stroke like activity. Reports having these rare spontaneous attacks for years which she has to breath through. Patient denies any abdominal pain, nausea, fever, chills, difficulty breathing, shortness of breath, back pain, night sweats, pain with urination, increased urinary frequency, increased urinary urgency, blood in her urine or stool, syncope or a near syncopal episode, recent trauma or falls, bowel incontinence, bladder incontinence, bowel retention, bladder retention, or any other complaints at this time. Onset (ago): minute(s) Severity: mild Severity scale (1-10): 2 Related Data Home Medications Medication Instructions Recorded Confirmed glucosamine-chondroitin 250 mg-200 2 tab PO TID 08/27/20 05/31/21 mg tablet (Osteo Bi-Flex) ibuprofen 800 mg tablet 800 mg PO TID PRN Pain 03/21/21 05/31/21 Previous Rx's Medication Instructions Recorded naproxen 500 mg tablet 500 mg PO BID PRN pain 7 days #14 03/30/21 tabs phenazopyridine 100 mg tablet 100 mg PO TID PRN spasm 4 days #12 06/06/21 (Pyridium) tabs tamsulosin 0.4 mg capsule 0.4 mg PO BEDTIME 14 days #14 caps 06/06/21 naproxen 500 mg tablet 500 mg PO BID PRN pain #30 tabs 02/24/22 tramadol 50 mg tablet 50 mg PO Q6H PRN pain #20 tabs 02/24/22 valacyclovir 500 mg tablet 500 mg PO BID #30 tabs 03/29/22 (Valtrex) Allergies Allergy/AdvReac Type Severity Reaction Status Date / Time No Known Allergies Allergy Verified 03/29/22 10:17 Review of Systems Constitutional: Constitutional: Reports no additional constitutional complai nts, Denies chills, Denies fever(s) and Denies night sweats Eyes: Eyes: Reports no additional eye complaints, Denies blurry vision, Denies change in vision, Denies diplopia, Denies eye discharge, Denies loss of vision and Denies eye pain ENT: Denies dizziness Cardiovascular: Cardiovascular: Reports no additional cardiovascular complaints, Denies chest pain, Denies lightheadedness, Denies Loss of Consciousness and Denies dyspnea Respiratory: Respiratory: Reports no additional respiratory complaints and D enies dyspnea Gastrointestinal: Gastrointestinal: Reports no additional gastrointestinal complaints, Denies abdominal pain, Denies melena, Denies hematochezia, Denies change in bowel habits and Denies change in stool character Genitourinary: Genitourinary: Denies hematuria, Denies urinary frequency, Denies dysuria, Denies urinary incontinence, Denies urinary hesitancy and Denies urinary urgency Musculoskeletal: Musculoskeletal: Reports no additional musculoskeletal complaints, Denies numbness and Denies tingling Neurologic: Denies dizziness, Denies loss of vision, Denies numbness and Denies tingling Psychiatric: Psychiatric: Reports no additional psychiatric complaints Endocrine: Endocrine: Reports no additional endocrine complaints Hematologic/Lymphatic: Hematologic/Lymphatic: Reports no additional hematologic/lymphatic complaints Allergic/Immunologic: Allergic/Immunologic: Reports no additional allergic/immunologic complaints PMF Past Medical History Attestation statement: The following information was validated with the patient. Source: old records reviewed and nursing notes reviewed Medical History COVID-19 vaccine series completed Kidney calculus Surgical History History of tubal ligation Hx of eye surgery Hx of hernia repair Hx of lithotripsy Social History Social History Alcohol intake: former Patient Tobacco Use Status: Never used Tobacco Advance Directives: No Advance Directives Information Provided: No Current occupational status: employed Current occupation: Charge Nurse Physical Exam ED Vital Signs: Vital Signs - 24 hr 08/09/22 07:58 08/09/22 08:02 Temperature 97.5 F Pulse Rate 77 Respiratory Rate 18 Blood Pressure 117/80 Pulse Oximetry 96 96 Oxygen Delivery Method Room Air Room Air BMI result Body Mass Index 38.0 Const General: cooperative, healthy appearing and no acute distress Nutritional Appearance: average body habitus Orientation/consciousness: oriented to person, oriented to place, oriented to time and patient oriented x3 Limitations: no limitations HENMT Head: Yes normal to inspection Ears: hearing grossly normal bilaterally General nose exam: Normal external nose present Face and sinus: Yes normal facial exam Eyes General: appearance normal, both eyes and all related structures Neck Neck: Yes normal visual inspection Chest Chest palpation & inspection: normal inspection of the chest Resp Effort & Inspection: normal respiratory effort and able to speak in complete sentences Auscultation: clear to auscultation bilaterally Cardio Jugular venous distension: no JVD Rate: regular rate Rhythm: regular rhythm Neuro General: oriented to person, oriented to place, oriented to time and patient oriented x3 Medications Administered Discontinued Medications Generic Name Dose Route Start Last Admin Trade Name Freq PRN Reason Stop Dose Admin Sodium Chloride 1,000 mls @ 999 mls/hr 08/09/22 08:30 08/09/22 08:46 Ns IV 08/09/22 09:30 999 mls/hr .Q1H1M [facility] Administration Medical Decision Making Medical Decision Making [facility] Narrative: Patient is a 42 year old assigned female at presenting to the emergency department today after a near syncopal episode. Patient's physical exam was unremarkable. Patient's blood work was unremarkable. Patient's EKG was unre markable. Patient's chest x-ray showed no acute process. I explained my physical exam findings as well as all test results to the patient. I answered all questions asked by the patient. I stressed the importance of the patient taking her medication as prescribed. I stressed the importance of the patient following up with her primary care provider. I stressed the importance of the patient returning to the emergency department immediately if her symptoms were to worsen or if she were to develop any dizziness, shortness of breath, difficulty breathing, chest pain, blurry vision, loss of vision, nausea, vomiting, abdominal pain, fever, chills, back pain, or any other complaints. Patient verbalized agreement and understanding with this treatment plan and discharge. Differential Diagnosis Differential Diagnoses: The differential diagnosis associated with the presentation includes vasovagal episode Lab Data [facility] Lab Attestation statement: I reviewed the patient's lab results. 08/09/22 08:43 08/09/22 08:43 Labs: Lab Results 08/09/22 08/09/22 08/09/22 Range/Units 08:43 08:43 08:43 WBC 5.7 (4.8-10.8) X10*3/uL RBC 4.26 (4.20-5.50) X10*6/uL Hgb 12.6 (12.0-16.0) g/dl Hct 37.8 (37.0-47.0) % MCV 88.7 (80.0-98.0) fL MCH 29.6 (27.0-33.0) pg MCHC 33.3 (31.0-35.0) g/dl RDW 12.9 (11.0-16.0) % Plt Count 269 (160-400) X10*3/uL MPV 11.3 (9.4-12.3) fL Immature Gran % (Auto) 0.4 (0.0-0.4) % Neut % (Auto) 50.6 (45-73) % Lymph % (Auto) 38.2 (20-40) % [place] % (Auto) 6.0 (2-11) % Eos % (Auto) 4.1 H (0-4) % Baso % (Auto) 0.7 (0-2) % Lymph # (Auto) 2.2 (1.2-4.9) X10*3/uL [place] # (Auto) 0.3 (0.1-1.2) X10*3/uL Eos # (Auto) 0.2 (0.0-0.4) X10*3/uL Baso # (Auto) 0.0 (0.0-0.2) X10*3/uL Abs Immat Gran (auto) 0.02 (0.00-0.03) X10*3/uL Absolute Neuts (auto) 2.9 (2.0-8.3) x10*3/uL Absolute Nucleated RBC 0.000 (0.0-0.012) X10*3/uL Nucleated RBC % (auto) 0.0 (0.0-0.2) /100WBC Sodium 141 (135-145) mmol/L Potassium 4.4 (3.3-5.1) mmol/L Chloride 109 H (96-108) mmol/L Carbon Dioxide 22 (22-29) mmol/L Anion Gap 14 (12-20) BUN 12 (9-16) mg/dL Creatinine 0.67 (0.5-1.4) mg/dL Estim Creat Clear Calc 122.8 Estimated GFR > 60 Random Glucose 116 H (60-115) mg/dL Calcium 8.7 D (8.4-10.2) mg/dL Magnesium 1.8 (1.6-2.6) mg/dL Total Bilirubin 0.3 (0.0-1.0) mg/dL AST 16 (5-31) U/L ALT 14 (0-31) U/L Alkaline Phosphatase 68 (39-117) U/L Troponin I High Sens (<3.5-17.0) ng/L Total Protein 5.9 L (6.5-8.0) g/dL Albumin 3.6 (3.5-5.0) g/dL Lipase (8-78) U/L TSH (0.32-4.0) uIU/mL Beta HCG, Quant mIU/mL COVID-19 (CHERYL) Negative (Negative) COVID-19 Clin Com See Note 08/09/22 08/09/22 08/09/22 Range/Units 08:43 08:43 08:43 WBC (4.8-10.8) X10*3/uL RBC (4.20-5.50) X10*6/uL Hgb (12.0-16.0) g/dl Hct (37.0-47.0) % MCV (80.0-98.0) fL MCH (27.0-33.0) pg MCHC (31.0-35.0) g/dl RDW (11.0-16.0) % Plt Count (160-400) X10*3/uL MPV (9.4-12.3) fL Immature Gran % (Auto) (0.0-0.4) % Neut % (Auto) (45-73) % Lymph % (Auto) (20-40) % [place] % (Auto) (2-11) % Eos % (Auto) (0-4) % Baso % (Auto) (0-2) % Lymph # (Auto) (1.2-4.9) X10*3/uL [place] # (Auto) (0.1-1.2) X10*3/uL Eos # (Auto) (0.0-0.4) X10*3/uL Baso # (Auto) (0.0-0.2) X10*3/uL Abs Immat Gran (auto) (0.00-0.03) X10*3/uL Absolute Neuts (auto) (2.0-8.3) x10*3/uL Absolute Nucleated RBC (0.0-0.012) X10*3/uL Nucleated RBC % (auto) (0.0-0.2) /100WBC Sodium (135-145) mmol/L Potassium (3.3-5.1) mmol/L Chloride (96-108) mmol/L Carbon Dioxide (22-29) mmol/L Anion Gap (12-20) BUN (9-16) mg/dL Creatinine (0.5-1.4) mg/dL Estim Creat Clear Calc Estimated GFR Random Glucose (60-115) mg/dL Calcium (8.4-10.2) mg/dL Magnesium (1.6-2.6) mg/dL Total Bilirubin (0.0-1.0) mg/dL AST (5-31) U/L ALT (0-31) U/L Alkaline Phosphatase (39-117) U/L Troponin I High Sens < 3.5 (<3.5-17.0) ng/L Total Protein (6.5-8.0) g/dL Albumin (3.5-5.0) g/dL Lipase 23 (8-78) U/L TSH 2.95 (0.32-4.0) uIU/mL Beta HCG, Quant < 2 mIU/mL COVID-19 (CHERYL) (Negative) COVID-19 Clin Com Independent Interpretation I performed an independent interpretation of an: EKG Interpretation: Vent. Rate: 068 BPM ? ? Atrial Rate: 068 BPM P-R Int: 158 ms? QRS Dur: 080 ms QT Int: 392 ms ? ? ? P-R-T Axes: 010 036 013 degrees QTc Int: 416 ms ? Normal sinus rhythm Normal ECG When compared with ECG of 11-SEP-2016 17:45, No significant change was found DD/ 0819 Radiology Impression Radiologist Impression: My interpretation is in agreement with the radiologist's impression of this imaging study. EXAMINATION: XR CHEST CLINICAL INFORMATION: Chest pain COMPARISON: 02/05/2018 TECHNIQUE: 2 views of the chest were obtained. FINDINGS: Lungs are mildly hypoinflated. No other Significant abnormality is noted involving the heart, lungs, mediastinum, bony thorax or soft tissues. XR/XR chest 2V IMPRESSION: No acute intrathoracic disease. Dictated By: Kevin Felder MD Signed By: Electronically signed by Kevin Felder MD 08/09/22 0909 Discharge Plan Discharge Clinical Impression: Vasovagal episode Patient Disposition: Home, Self-Care Instructions: Near Syncope (ED) Additional Instructions: Follow up with your primary care provider. Return to the emergency department immediately if your symptoms worsen or if you develop any dizziness, shortness of breath, difficulty breathing, chest pain, blurry vision, loss of vision, nausea, vomiting, abdominal pain, fever, chills, back pain, or any other complaints. Prescriptions: No Action phenazopyridine [Pyridium] 100 mg tablet 100 mg PO TID PRN (Reason: spasm) 4 Days Qty: 12 0RF tamsulosin 0.4 mg capsule 0.4 mg PO BEDTIME 14 Days Qty: 14 0RF naproxen 500 mg tablet 500 mg PO BID PRN (Reason: pain) 7 Days Qty: 14 0RF naproxen 500 mg tablet 500 mg PO BID PRN (Reason: pain) Qty: 30 0RF tramadol 50 mg tablet 50 mg PO Q6H PRN (Reason: pain) Qty: 20 0RF glucosamine-chondroitin [Osteo Bi-Flex] 250-200 mg tablet 2 tab PO TID Rx Instructions: give after food/meal ibuprofen 800 mg tablet 800 mg PO TID PRN (Reason: Pain) valacyclovir [Valtrex] 500 mg tablet 500 mg PO BID Qty: 30 1RF Rx Instructions: take with onset on of symptoms, take for three days, may repeat dosing per episode prn Referrals: [facility] [Provider Group] (Call to establish and follow up with a numerical tool programmer. ) Phoenix Montgomery MD [Primary Care Provider] - Stand Alone Forms: Work/School Release Interventions: ED Discharge Assessment Last Done: 08/09/22 09:51 Discharge Date/Time: 08/09/22 10:03 Print Language: Martiniquais
--- NOTE | 2022-08-09 08:10 | ECG_ITS ---
Test Reason : palpitations Blood Pressure : / mmHG Vent. Rate : 068 BPM Atrial Rate : 068 BPM P-R Int : 158 ms QRS Dur : 080 ms QT Int : 392 ms P-R-T Axes : 010 036 013 degrees QTc Int : 416 ms Normal sinus rhythm Normal ECG When compared with ECG of 11-SEP-2016 17:45, No significant change was found Referred By: Elo Leyva Electronically Signed By:SAHARA LOERA
[2022-08-09] MEDS: 0.9 % Sodium Chloride 1,000 ML 999 ML IV (08:46)
--- NOTE | 2022-08-09 08:48 | PC.NURSE ---
Alert and oriented, resp even and unlabored. NSR on monitor, IV established labs drawn and sent. Call quesada within reach
[2022-08-09 08:49] LABS: MANUAL DIFF FLAG NO
[2022-08-09 08:52] LABS: Basophils Percent Auto 0.7 % (0-2); Eosinophils Absolute Auto 0.2 X10*3/uL (0.0-0.4); Eosinophils Percent Auto 4.1 % (0-4); Hematocrit 37.8 % (37.0-47.0); Hemoglobin 12.6 g/dl (12.0-16.0); Imm Gran Abs Auto 0.02 X10*3/uL (0.00-0.03); Imm Gran Pct Auto 0.4 % (0.0-0.4); Lymphocytes Absolute Auto 2.2 X10*3/uL (1.2-4.9); Lymphocytes Percent Auto 38.2 % (20-40); Mean Corpuscular HGB Conc 33.3 g/dl (31.0-35.0); Mean Corpuscular Hemoglobin 29.6 pg (27.0-33.0); Mean Corpuscular Volume 88.7 fL (80.0-98.0); Mean Platelet Volume 11.3 fL (9.4-12.3); Monocytes Absolute Auto 0.3 X10*3/uL (0.1-1.2); Neutrophils Absolute Auto 2.9 x10*3/uL (2.0-8.3); Neutrophils Percent Auto 50.6 % (45-73); Platelet Count 269 X10*3/uL (160-400); Red Blood Count 4.26 X10*6/uL (4.20-5.50); Red Cell Distribution Width 12.9 % (11.0-16.0); White Blood Count 5.7 X10*3/uL (4.8-10.8)
[2022-08-09 09:10] LABS: Lipase 23 U/L (8-78)
[2022-08-09 09:15] LABS: HCG Quantitative < 2 mIU/mL; Troponin-I High Sensitivity < 3.5 ng/L (<3.5-17.0)
[2022-08-09 09:23] LABS: COVID-19 Test Negative (Negative); IDNOW Serial# 08D9AD1C
[2022-08-09 09:24] LABS: Anion Gap 14 (12-20)
[2022-08-09 09:28] LABS: TSH reflex Free T4 2.95 uIU/mL (0.32-4.0)
[2022-08-09 09:29] LABS: Alanine Aminotransferase 14 U/L (0-31); Albumin Level 3.6 g/dL (3.5-5.0); Alkaline Phosphatase 68 U/L (39-117); Aspartate Amino Transferase 16 U/L (5-31); Bilirubin Total 0.3 mg/dL (0.0-1.0); Blood Urea Nitrogen 12 mg/dL (9-16); Calcium 8.7 mg/dL (8.4-10.2); Carbon Dioxide 22 mmol/L (22-29); Chloride 109 mmol/L (96-108); Creatinine Clr Calc Pharmacy 122.8; Estimated Glomerular Filt Rate > 60; Glucose Random 116 mg/dL (60-115); Magnesium 1.8 mg/dL (1.6-2.6); Potassium 4.4 mmol/L (3.3-5.1); Sodium 141 mmol/L (135-145); Total Protein 5.9 g/dL (6.5-8.0)
== END 2022-08-09 10:03 | disposition home or self-care (01) ==
PROVIDERS: Physician Assistant Medical; Emergency Provider Emergency Medicine; PCP Internal Medicine
DX: R55 Syncope and collapse (principal); R07.89 Other chest pain; Z79.899 Other long term (current) drug therapy; Z20.822 Contact with and (suspected) exposure to COVID-19; Z20.828 Contact with and (suspected) exposure to other viral communicable diseases
CPT/HCPCS: 36415; 71046; 80053; 83690; 83735; 84443; 84484; 84702; 85025; 87635; 93005; 99283; 99285

== ENCOUNTER 2023-02-12 13:35 | Outpatient (REF) | payer SELFPAY ==
[2023-02-12 15:12] LABS: Vitamin D 25-OH Total 23.4 ng/mL (>30)
[2023-02-14 15:59] LABS: TS Negative Control Passed; TS Panel A 0; TS Panel B 0; TS Positive Control Passed; TSpotTB Negative (Negative)
== END 2023-02-12 13:36 | disposition home or self-care (01) ==
LOC: HO.LAB 13:35
PROVIDERS: PCP Internal Medicine; Visit Provider Internal Medicine
DX: Z02.1 Encounter for pre-employment examination (principal); E55.9 Vitamin D deficiency, unspecified
CPT/HCPCS: 36415; 82306; 86481

== ENCOUNTER 2024-03-17 20:41 | Emergency (ER) | payer OTHER, SELFPAY ==
--- NOTE | ~2024-03-17 | CT_ITS ---
EXAMINATION: CT ABDOMEN AND PELVIS WITHOUT CONTRAST CLINICAL INFORMATION: Pain. COMPARISON: June 15, 2021 TECHNIQUE: Multidetector volumetric imaging was performed from the superior aspect of the liver through the pubic symphysis. Sagittal and coronal reformatted images were obtained on the technologist's workstation. This CT examination was performed using dose optimization techniques as appropriate, variously including the following: *Automated exposure control *Adjustment of mA and/or kV according to patient size (this includes techniques or standardized protocols for targeted exams where dose is matched to indication/reason for exam; i.e. extremities or head) *Use of iterative reconstruction technique DLP: 714 mGy-cm FINDINGS: LUNG BASES: The visualized lung bases are unremarkable. LIVER, GALLBLADDER, AND BILIARY TREE: The liver is of diminished attenuation. There is no focal liver lesion or intrahepatic biliary duct dilatation. The gallbladder is unremarkable with no evidence of radiopaque gallstones, gallbladder wall thickening, or obvious pericholecystic inflammatory changes. PANCREAS: Unremarkable. SPLEEN: Unremarkable. ADRENAL GLANDS: There are low-density left adrenal nodules again seen measuring up to 3.3 cm similar to previous. KIDNEYS AND URETERS: The kidneys are normal in size, shape, and attenuation. There are multiple nonobstructing renal calculi measuring up to 5 mm lower pole left kidney. There is no hydronephrosis. BLADDER: Unremarkable. GASTROINTESTINAL TRACT: There are diverticula of the descending colon without diverticulitis. The appendix is visualized and is within normal limits. ABDOMINAL WALL: Hernia repair mesh is noted in place. LYMPH NODES: Normal. VASCULAR: Unremarkable. PELVIC VISCERA: 3.6 cm low-density structure within the left adnexa. There is a 3.3 cm low-density structure within the right adnexa. There is a small amount of free fluid within the dependent pelvis. OSSEOUS STRUCTURES: Moderate L4-[address]/CT abdomen pelvis wo IV con IMPRESSION: 1. Bilateral nonobstructing renal calculi. 2. Low-density adnexal structures measuring up to 3.6 cm on the left and 3.3 cm on the right. These could reflect ovarian cysts. 3. Small amount of free fluid within the dependent pelvis. 4. Diverticulosis without diverticulitis. 5. Hepatic steatosis. 6. Low-density left adrenal nodules similar to previous. Fleischner guidelines were followed. Electronically signed by: Timur Crocker MD 03/18/2024 04:45 AM AKSHAT
[2024-03-17 20:47] VITALS: BP 118/66; PULSE 87; RESP 20; TEMP 36.8; O2SAT 98; BMI 38.1
[2024-03-17 21:05] LABS: MANUAL DIFF FLAG NO
[2024-03-17 21:06] LABS: Basophils Absolute Auto 0.1 X10*3/uL (0.0-0.2); Basophils Percent Auto 0.6 % (0-2); Eosinophils Absolute Auto 0.2 X10*3/uL (0.0-0.4); Eosinophils Percent Auto 2.5 % (0-4); Hematocrit 38.3 % (37.0-47.0); Hemoglobin 12.8 g/dl (12.0-16.0); Imm Gran Abs Auto 0.02 X10*3/uL (0.00-0.03); Imm Gran Pct Auto 0.2 % (0.0-0.4); Lymphocytes Absolute Auto 3.3 X10*3/uL (1.2-4.9); Lymphocytes Percent Auto 36.4 % (20-40); Mean Corpuscular HGB Conc 33.4 g/dl (31.0-35.0); Mean Corpuscular Hemoglobin 29.3 pg (27.0-33.0); Mean Corpuscular Volume 87.6 fL (80.0-98.0); Mean Platelet Volume 10.2 fL (9.4-12.3); Monocytes Absolute Auto 0.6 X10*3/uL (0.1-1.2); Monocytes Percent Auto 6.8 % (2-11); Neutrophils Absolute Auto 4.8 x10*3/uL (2.0-8.3); Neutrophils Percent Auto 53.5 % (45-73); Platelet Count 289 X10*3/uL (160-400); Red Blood Count 4.37 X10*6/uL (4.20-5.50); Red Cell Distribution Width 13.4 % (11.0-16.0)
[2024-03-17 21:08] LABS: Appearance Urine Clear; Color Urine Yellow; Glucose Urine UA Negative (Negative); Leukocyte Esterase Urine Trace (Negative); Nitrite Urine Positive (Negative); Specific Gravity - Urine 1.025 (1.005-1.025); UMIC TRIGGER UACC YES; Urine Blood Negative (Negative); Urine Ketones Trace mg/dL (Negative); Urine Protein Negative (Neg-Trace)
[2024-03-17 21:12] LABS: Bacteria Urine 3+ (None Seen); Hyaline Casts Urine 0-2 /LPF (0-2); RBC Urine 0-2 /HPF (0-2); Squamous Epithelial Cell Urine 0-2 /HPF (0-2); UACC Culture Trigger YES
[2024-03-17 21:22] LABS: Anion Gap 14 (12-20); Blood Urea Nitrogen 10 mg/dL (9-16); Calcium 9.4 mg/dL (8.4-10.2); Carbon Dioxide 24 mmol/L (22-29); Chloride 106 mmol/L (96-108); Creatinine Clr Calc Pharmacy 108.6; Estimated Glomerular Filt Rate > 60; Glucose Random 104 mg/dL (60-115); Potassium 3.8 mmol/L (3.3-5.1); Sodium 140 mmol/L (135-145)
[2024-03-18 01:03] VITALS: BP 123/69; PULSE 80; RESP 18; TEMP 36.8; O2SAT 98
--- NOTE | 2024-03-18 01:07 | MHC.EDTECH ---
This pct just assumed care of Patient ,vitals taken ,Patient watching television ,Call quesada within Pt reach .
--- NOTE | 2024-03-18 01:28 | PC.NURSE ---
Pt ambulatory to RM 3 from waiting room, assumed care of pt at this time. Labs resulted, + UTI. MD to bedside for primary eval.
--- NOTE | 2024-03-18 01:29 | ED.GENADULT ---
HPI - General Adult General Chief complaint: Back Pain/Injury Stated complaint: Kidney Infection Time Seen by Provider: 03/18/24 01:22 Source: patient Mode of arrival: ambulatory Limitations: no limitations History of Present Illness ED Provider: DR. Obregon HPI narrative: A 43-year-old female came in for evaluation of bilateral flank pain right pain more than the left side for a month ago, pain feels like spasm and similar to her previous kidney stones past. +dysuria, no frequency urination, no blood in the urine, normal bowel movement, passing flatus, intra-abdominal search is significant for hernia repair. Patient had history kidney stone and lithotripsy in the past. Fever, no chills, pain is associated with nausea but vomiting. Related Data Home Medications ?Medication ?Instructions ?Recorded ?Confirmed glucosamine-chondroitin 250 mg-200 2 tab PO TID 08/27/20 05/31/21 mg tablet (Osteo Bi-Flex) ibuprofen 800 mg tablet 800 mg PO TID PRN Pain 03/21/21 05/31/21 Previous Rx's ?Medication ?Instructions ?Recorded naproxen 500 mg tablet 500 mg PO BID PRN pain 7 days #14 03/30/21 tabs phenazopyridine 100 mg tablet 100 mg PO TID PRN spasm 4 days #12 06/06/21 (Pyridium) tabs tamsulosin 0.4 mg capsule 0.4 mg PO BEDTIME 14 days #14 caps 06/06/21 naproxen 500 mg tablet 500 mg PO BID PRN pain #30 tabs 02/24/22 tramadol 50 mg tablet 50 mg PO Q6H PRN pain #20 tabs 02/24/22 valacyclovir 500 mg tablet 500 mg PO BID #30 tabs 03/29/22 (Valtrex) cefuroxime axetil 500 mg tablet 500 mg PO BID #14 tabs 03/18/24 ibuprofen 600 mg tablet 600 mg PO Q8H PRN pain #10 tabs 03/18/24 Allergies Allergy/AdvReac Type Severity Reaction Status Date / Time No Known Allergies Allergy Verified 03/17/24 20:49 Review of Systems Review of Systems: All other systems are reviewed and are negative Constitutional: Reports as per HPI and Reports no additional constitutional complaints Eyes: Reports as per HPI and Reports no additional eye complaints Reports system reviewed and no additional complaints, except as documented Cardiovascular: Reports as per HPI and Reports no additional cardiovascular complaints Respiratory: Reports as per HPI and Reports no additional respiratory complaints Gastrointestinal: Reports as per HPI and Reports no additional gastrointestinal complaints Genitourinary: Reports no additional female genitourinary complaints Musculoskeletal: Reports no additional musculoskeletal complaints Skin/Breast: Reports system reviewed and no additional complaints, except as docu Psychiatric: Reports no additional psychiatric complaints Endocrine: Reports no additional endocrine complaints Hematologic/Lymphatic: Reports no additional hematologic/lymphatic complaints Allergic/Immunologic: Reports no additional allergic/immunologic complaints Reports system reviewed and no additional complaints, except as documented and Reports Abnormal speech present [facility] Past Medical History Medical History COVID-19 vaccine series completed Kidney calculus Surgical History Hx of lithotripsy History of tubal ligation Hx of eye surgery Hx of hernia repair Social History Social History Alcohol intake: former Patient Tobacco Use Status: Never used Tobacco Smoked in Last 30 Days: No Advance Directives: No Advance Directives Information Provided: No Patient : No Current occupational status: employed Current occupation: Charge Nurse Physical Exam ED Vital Signs: Vital Signs - 24 hr 03/17/24 20:47 03/18/24 01:03 Temperature 98.2 F 98.3 F Pulse Rate 87 80 Respiratory Rate 20 18 Blood Pressure 118/66 123/69 Pulse Oximetry 98 98 Oxygen Delivery Method Room Air Room Air BMI result Body Mass Index 38.1 Vital signs have been reviewed and appear to be correct. Blood pressure elevated. Heart rate normal. Respiratory rate normal. Temperature normal. Oxygen saturation normal. Appearance: Alert. Oriented X3. No acute distress. Head: Normal external exam. Normocephalic. Atraumatic. No Black signs noted. No raccoon eyes noted Eyes: PERRLA. EOMI. Conjunctiva and sclera normal. Eyelids normal. ENT: TM's Normal. Pharynx normal. Uvula midline. Moist mucous membranes. No trismus noted. No drooling noted. No muffled voice noted. Neck: Normal inspection. Neck supple. FROM. No adenopathy. Thyroid Normal. No meningeal signs. No neck mass noted. CVS: Normal heart rate and rhythm. Heart sound normal. No murmurs noted. Pulses normal throughout. Respiratory: No respiratory distress. Painless inspiration. Breath sounds normal. No wheezes/rales/rhonchi noted. Chest nontender. No accessory muscle usage noted or decreased air movement noted. Abdomen: Soft, bilateral lower abdominal tenderness, no rebound tenderness, no guarding. Bowel sounds normal in all 4 quadrants. No distention noted. No organomegaly noted. No visible injury noted. Back: Bilateral CVA tenderness. Full range of motion noted. Skin: Skin warm and dry. Normal skin color. Normal skin turgor. No rashes/lesions/lacerations noted. Extremities: No lower extremity edema. Extremities exhibit normal range of motion. Extremities nontender. Neuro: Oriented X 3. Cranial nerve exam: II-XII are grossly intact No motor deficit. No sensory deficit. Reflexes normal. Course Reevaluation(s) Reevaluation #1: 43-year-old female bilateral pain negative CT for obstructing stone, UTI will start the patient's cefuroxime, drink plenty fluids. Bilateral ovarian cyst, patient was instructed to follow-up with Dr. Rodriguez. Time: 01:32 Medications Administered Discontinued Medications Generic Name Dose Route Start Last Admin Trade Name Freq PRN Reason Stop Dose Admin Ceftriaxone Sodium 1 gm 03/18/24 01:32 03/18/24 01:53 Ceftriaxone Sodium 1 Gm Vial IVPUSH 03/18/24 01:33 1 gm ONCE ONE Administration Sodium Chloride 1,000 mls @ 999 mls/hr 03/18/24 01:27 03/18/24 02:54 Ns IV 03/18/24 02:27 Infused .Q1H1M ONE Infusion Ketorolac Tromethamine 15 mg 03/18/24 01:27 03/18/24 01:53 Ketorolac Tromethamine 15 Mg/Ml Vial IVPUSH 03/18/24 01:28 15 mg ONCE ONE Administration Morphine Sulfate 2 mg 03/18/24 01:27 03/18/24 01:53 Morphine Sulfate 2 Mg/Ml Cartridge IVPUSH 03/18/24 01:28 2 mg ONCE ONE Administration Protocol Ondansetron HCl 4 mg 03/18/24 01:27 03/18/24 01:53 Ondansetron Hcl 4 Mg/2 Ml Vial IVPUSH 03/18/24 01:28 4 mg ONCE ONE Administration Medical Decision Making Differential Diagnosis Differential Diagnoses: The differential diagnosis associated with the presentation includes (Obstructing kidney stone, UTI, pyelonephritis, electrolyte derangement, severe anemia.) Admission/Observation Consideration of admission/observation: Escalation of care including admission/observation considered Lab Data MDM Lab Attestation statement: I reviewed the patient's lab results. 03/17/24 20:59 03/17/24 20:59 Labs: Lab Results 03/17/24 Range/Units 20:59 WBC 9.0 (4.8-10.8) X10*3/uL RBC 4.37 (4.20-5.50) X10*6/uL Hgb 12.8 (12.0-16.0) g/dl Hct 38.3 (37.0-47.0) % MCV 87.6 (80.0-98.0) fL MCH 29.3 (27.0-33.0) pg MCHC 33.4 (31.0-35.0) g/dl RDW 13.4 (11.0-16.0) % Plt Count 289 (160-400) X10*3/uL MPV 10.2 (9.4-12.3) fL Immature Gran % (Auto) 0.2 (0.0-0.4) % Neut % (Auto) 53.5 (45-73) % Lymph % (Auto) 36.4 (20-40) % Mcdonough % (Auto) 6.8 (2-11) % Eos % (Auto) 2.5 (0-4) % Baso % (Auto) 0.6 (0-2) % Lymph # (Auto) 3.3 (1.2-4.9) X10*3/uL Mcdonough # (Auto) 0.6 (0.1-1.2) X10*3/uL Eos # (Auto) 0.2 (0.0-0.4) X10*3/uL Baso # (Auto) 0.1 (0.0-0.2) X10*3/uL Abs Immat Gran (auto) 0.02 (0.00-0.03) X10*3/uL Absolute Neuts (auto) 4.8 (2.0-8.3) x10*3/uL Absolute Nucleated RBC 0.000 (0.0-0.012) X10*3/uL Nucleated RBC % (auto) 0.0 (0.0-0.2) /100WBC Sodium 140 (135-145) mmol/L Potassium 3.8 (3.3-5.1) mmol/L Chloride 106 (96-108) mmol/L Carbon Dioxide 24 (22-29) mmol/L Anion Gap 14 (12-20) BUN 10 (9-16) mg/dL Creatinine 0.75 (0.5-1.4) mg/dL Estim Creat Clear Calc 108.6 Estimated GFR > 60 Random Glucose 104 (60-115) mg/dL Calcium 9.4 D (8.4-10.2) mg/dL Urine Color Yellow Urine Appearance Clear Urine pH 6.0 (5.0-9.0) Ur Specific Central 1.025 (1.005-1.025) Urine Protein Negative (Neg-Trace) mg/dL Urine Glucose (UA) Negative (Negative) mg/dL Urine Ketones Trace (Negative) mg/dL Urine Blood Negative (Negative) Urine Nitrite Positive H (Negative) Ur Leukocyte Esterase Trace H (Negative) Urine RBC 0-2 (0-2) /HPF Urine WBC 11-20 H (0-5) /HPF Ur Squamous Epith Cells 0-2 (0-2) /HPF Urine Bacteria 3+ (None Seen) Hyaline Casts 0-2 (0-2) /LPF Independent Interpretation I performed an independent interpretation of an: CT Scan (Abdomen and pelvis:) Radiology Impression Discussion of test interpretation with radiology: I have reviewed the radiologist's reading. Discharge Plan Discharge Clinical Impression: UTI (urinary tract infection), Ovarian cyst Patient Disposition: Home, Self-Care Instructions: Ovarian Cyst (ED), Urinary Tract Infection in Women (ED) Prescriptions: New cefuroxime axetil 500 mg tablet 500 mg PO BID Qty: 14 0RF ibuprofen 600 mg tablet 600 mg PO Q8H PRN (Reason: pain) Qty: 10 0RF No Action phenazopyridine [Pyridium] 100 mg tablet 100 mg PO TID PRN (Reason: spasm) 4 Days Qty: 12 0RF tamsulosin 0.4 mg capsule 0.4 mg PO BEDTIME 14 Days Qty: 14 0RF naproxen 500 mg tablet 500 mg PO BID PRN (Reason: pain) 7 Days Qty: 14 0RF naproxen 500 mg tablet 500 mg PO BID PRN (Reason: pain) Qty: 30 0RF tramadol 50 mg tablet 50 mg PO Q6H PRN (Reason: pain) Qty: 20 0RF glucosamine-chondroitin [Osteo Bi-Flex] 250-200 mg tablet 2 tab PO TID Rx Instructions: give after food/meal ibuprofen 800 mg tablet 800 mg PO TID PRN (Reason: Pain) valacyclovir [Valtrex] 500 mg tablet 500 mg PO BID Qty: 30 1RF Rx Instructions: take with onset on of symptoms, take for three days, may repeat dosing per episode prn Referrals: Hal Cordova MD [Physician] - Phoenix Montgomery MD [Primary Care Provider] - Murphy Rodriguez MD [Physician] - Print Language: Georgian
[2024-03-18] MEDS: 0.9 % Sodium Chloride 1,000 ML 999 ML IV (01:52)
[2024-03-18] MEDS: Ketorolac Tromethamine 15 MG/ML VIAL IVPUSH (01:53)
[2024-03-18] MEDS: ondansetron HCL 4 MG/2 ML VIAL IVPUSH (01:53)
[2024-03-18] MEDS: Morphine Sulfate 2 MG/ML CARTRIDGE IVPUSH (01:53)
[2024-03-18] MEDS: cefTRIAXone sodium 1 GM VIAL IVPUSH (01:53)
--- NOTE | 2024-03-18 02:03 | PC.NURSE ---
Pt medicated per MAR, awaiting CT, aware of plan of care.
[2024-03-18 05:37] VITALS: BP 123/69; PULSE 80; RESP 18; TEMP 36.8; O2SAT 98
== END 2024-03-18 05:37 | disposition home or self-care (01) ==
PROVIDERS: Emergency Provider Emergency Medicine; PCP Internal Medicine
DX: N83.292 Other ovarian cyst, left side (principal); N39.0 Urinary tract infection, site not specified; R30.0 Dysuria; R10.2 Pelvic and perineal pain; R11.0 Nausea; Z79.899 Other long term (current) drug therapy
CPT/HCPCS: 36415; 74176; 80048; 81001; 85025; 87086; 87088; 87186; 96361; 96374; 96375; 99285; J0696; J1885; J2270; J2405

== ENCOUNTER 2024-04-03 09:03 | Outpatient (REF) | payer OTHER, SELFPAY ==
[2024-04-03 10:27] LABS: Hematocrit 38.5 % (37.0-47.0); Mean Corpuscular HGB Conc 33.8 g/dl (31.0-35.0); Mean Corpuscular Hemoglobin 29.4 pg (27.0-33.0); Mean Corpuscular Volume 87.1 fL (80.0-98.0); Mean Platelet Volume 10.4 fL (9.4-12.3); Platelet Count 307 X10*3/uL (160-400); Red Blood Count 4.42 X10*6/uL (4.20-5.50); Red Cell Distribution Width 13.3 % (11.0-16.0); White Blood Count 6.3 X10*3/uL (4.8-10.8)
[2024-04-03 11:15] LABS: HCG Quantitative < 2 mIU/mL
[2024-04-04 14:32] LABS: CT PCR NOT DETECTED (Not Detect.); NG PCR NOT DETECTED (Not Detect.)
[2024-04-05 05:09] LABS: Prolactin 18.2 ng/mL
== END 2024-04-03 09:04 | disposition home or self-care (01) ==
LOC: HO.LNP 09:03
PROVIDERS: PCP Internal Medicine; Visit Provider Obstetrics & Gynecology
DX: N93.9 Abnormal uterine and vaginal bleeding, unspecified (principal)
CPT/HCPCS: 84146; 84443; 84702; 85027; 87491; 87591

== ENCOUNTER 2024-04-03 09:03 | Outpatient (AMB) | payer OTHER, SELFPAY ==
--- NOTE | 2024-04-03 09:04 | A.OFFVIS_ITS ---
Vital Signs 04/03/24 09:06 BP 112/72 Intake Visit Reasons: ER follow up Paradi Operator: Paradi Operator Present (Coby) Accompanied by: Self / Same As Patient Allergies No Known Allergies Allergy (Verified 04/03/24 09:07) HPI Comments Details: Presenting for emergency room visit follow-up. The patient is complaining of menstrual cycles associated with passage of blood clots and pelvic cramping 03/18/2024 CT scan showed the following: IMPRESSION: 1. Bilateral nonobstructing renal calculi. 2. Low-density adnexal structures measuring up to 3.6 cm on the left and 3.3 cm on the right. These could reflect ovarian cysts. 3. Small amount of free fluid within the dependent pelvis. 4. Diverticulosis without diverticulitis. 5. Hepatic steatosis. 6. Low-density left adrenal nodules similar to previous. 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 Reproductive History Menstrual Age of Menarche: 14 Duration of menses: 3-5 days Date of last menstrual period: 03/24/24 Review of Systems Const All systems reviewed & are unremarkable except as noted in HPI and below Card Reports as per HPI Resp Reports as per HPI GI Reports as per HPI and Reports no additional complaints Reports as per HPI Physical Exam Vital Signs: Last Vital Signs BP 112/72 04/03/24 09:06 Const General: cooperative, healthy appearing and comfortable Chest Chest palpation & inspection: normal inspection of the chest and normal palpation of entire chest wall Breast/axilla inspection: normal inspection of the breasts and normal inspection of the axillae Breast/axilla palpation: normal palpation of the breasts, normal palpation of the axillae and no axillary lymphadenopathy Resp Effort & Inspection: normal respiratory effort Auscultation: clear to auscultation bilaterally Percussion: percussion normal Cardio Palpation: normal PMI Rate: regular rate Rhythm: regular rhythm Heart sounds: no murmurs and no rubs Peripheral pulses: Peripheral pulses 2+ throughout GI Inspection: Yes normal to inspection Palpation (GI): Soft to palpation, nontender, no guarding, not rigid and No hepatosplenomegaly present Percussion: Yes normal to percussion Auscultation: normal bowel sounds Rectal Exam - Female: deferred General: Yes bladder normal to palpation External Female Exam: No lesion Speculum Exam - Vagina: normal appearance of the vagina, normal palpation, normal vaginal discharge and not erythematous Speculum Exam - Cervix: normal appearance of the cervix and normal palpation Bimanual exam- vagina & uterus: normal bimanual exam, normal palpation, uterine size normal, bladder normal to palpation, consistency normal and normal palpation Bimanual Exam- Adnexa, other: normal adnexae, no masses and no tenderness Assessment & Plan Assessment & Plan (1) Abnormal uterine bleeding (AUB): Code(s): N93.9 - Abnormal uterine and vaginal bleeding, unspecified Category: Medical Plan: GC and chlamydia taken CBC, TSH, prolactin, HCG, and pelvic ultrasound ordered. Discussed with the patient the different causes of abnormal bleeding including thyroid disorders, uterine and ovarian pathology, endometrial hyperplasia, carcinoma and other potential causes. Discussed with the patient the work up including CBC (to r/o anemia), TSH, prolactin, pelvic Ultrasound, endometrial biopsy to r/o endometrial pathology. All questions answered and the patient verbalized understanding. Instructed the patient to schedule an appointment for an endometrial biopsy in 2 weeks. (2) Ovarian cyst: Code(s): N83.209 - Unspecified ovarian cyst, unspecified side Category: Medical Plan: Will order pelvic ultrasound. Instructions given the patient to schedule an ul trasound follow-up appointment within 2 weeks. All questions answered, the patient verbalized understanding. Orders: Orders HCG Quantitative Today N93.9 - Abnormal uterine and vaginal bleeding, unspecified MM screening mammo BI Today Z12.31 - Encounter for screening mammogram for malignant neoplasm of breast CT NG by PCR Today N93.9 - Abnormal uterine and vaginal bleeding, unspecified TSH reflex Free T4 Today N93.9 - Abnormal uterine and vaginal bleeding, unspecified Prolactin Today N93.9 - Abnormal uterine and vaginal bleeding, unspecified Complete Blood Count no Diff Today N93.9 - Abnormal uterine and vaginal bleeding, unspecified US pelvic and transvaginal Today N93.9 - Abnormal uterine and vaginal bleeding, unspecified Coding Level of Care Code New Pt Level 3 (71750) Diagnoses Abnormal uterine bleeding (AUB) N93.9 Ovarian cyst N83.209
[2024-04-03 09:06] VITALS: BP 112/72
== END 2024-04-03 09:40 | disposition home or self-care (01) ==
LOC: HO.HWS 09:03
PROVIDERS: PCP Internal Medicine; Visit Provider Obstetrics & Gynecology
DX: N93.9 Abnormal uterine and vaginal bleeding, unspecified (principal); N83.209 Unspecified ovarian cyst, unspecified side
CPT/HCPCS: 99203

== ENCOUNTER 2024-04-03 09:47 | Outpatient (REF) | payer OTHER, SELFPAY | END 2024-04-03 09:48 | disposition home or self-care (01) | LOC: HO.LAB 09:47 | PROVIDERS: PCP Internal Medicine; Visit Provider Obstetrics & Gynecology | DX: Z13.89 Encounter for screening for other disorder (principal) ==

== ENCOUNTER 2024-04-08 14:46 | Outpatient (AMB) | payer OTHER, SELFPAY ==
--- NOTE | 2024-04-08 14:48 | MHC.OFFVIS ---
Intake Visit Reasons: [facility]: Kidney stones/ UTI Intake Note: Patient is present for [facility] KIDNEY STONES/UTI Urology Medication: Antibiotic Allergy:NONE Blood Thinner:NONE Remote Control Assembler Required: No Allergies No Known Allergies Allergy (Verified 04/08/24 14:50) HPI Comments Details: Kelly is a pleasant female. She is a patient of Dr. Montgomery. She is seen for the following urologic conditions - pyelonephritis - nephrolithiasis Here for follow-up First time in 2 years Recent imaging - small scattered stones bilateral Continue fluid intake UA normal Repeat imaging 12 months Reason presentation to emergency room with Klebsiella UTI 04/06 Nephrolithiasis Imaging shows stone - 05/02 multiple stones right side - 04/03 renal ultrasound collection of stones in right kidney and lower pole Intervention - 04/03 right ESWL 2 cm stone - 03/04 right ureteroscopy Therapeutic plan PFSH Medical History COVID-19 vaccine series completed Kidney calculus Surgical History Hx of lithotripsy History of tubal ligation Hx of eye surgery Hx of hernia repair Social History Alcohol intake: former Patient Tobacco Use Status: Never used Tobacco Current occupational status: employed 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 1 tab PO Q6H 4 days PRN 20 tabs 0RF pain K82.9 - Disease of gallbladder, unspecified, N20.0 - Calculus of kidney Coding Diagnoses Gallbladder attack K82.9
== END 2024-04-08 15:18 | disposition home or self-care (01) ==
PROVIDERS: PCP Internal Medicine; Visit Provider Urology
DX: Z13.9 Encounter for screening, unspecified (principal)

== ENCOUNTER → 2024-04-08 14:46 | Outpatient (BNVA) | payer OTHER, SELFPAY | PROVIDERS: PCP Internal Medicine; Visit Provider Urology | DX: K82.9 Disease of gallbladder, unspecified (principal); N20.0 Calculus of kidney | CPT/HCPCS: 81003 ==

== ENCOUNTER 2024-04-16 11:53 | Outpatient (REF) | payer OTHER, SELFPAY | END 2024-04-16 11:54 | disposition home or self-care (01) | LOC: HO.US 11:53 | PROVIDERS: PCP Internal Medicine; Visit Provider Obstetrics & Gynecology | DX: N93.9 Abnormal uterine and vaginal bleeding, unspecified (principal) | CPT/HCPCS: 76830; 76856 ==

== ENCOUNTER → 2024-06-04 10:45 | Outpatient (BNV) | payer OTHER, SELFPAY | PROVIDERS: PCP Internal Medicine; Visit Provider Internal Medicine | DX: Z12.31 Encounter for screening mammogram for malignant neoplasm of breast (principal) | CPT/HCPCS: 77063; 77067 ==

== ENCOUNTER 2024-06-04 10:59 | Outpatient (REF) | payer OTHER, SELFPAY | END 2024-06-04 11:00 | disposition home or self-care (01) | LOC: HO.MAMMO 10:59 | PROVIDERS: PCP Internal Medicine; Visit Provider Internal Medicine | DX: Z12.31 Encounter for screening mammogram for malignant neoplasm of breast (principal) | CPT/HCPCS: 77063; 77067 ==

== ENCOUNTER 2024-06-10 14:53 | Outpatient (REF) | payer OTHER, SELFPAY | END 2024-06-10 14:54 | disposition home or self-care (01) | LOC: HO.LNP 14:53 | PROVIDERS: PCP Internal Medicine; Visit Provider Obstetrics & Gynecology | DX: N93.9 Abnormal uterine and vaginal bleeding, unspecified (principal) | CPT/HCPCS: 58100; 88305 ==